=== PATIENT | male | born 1995 | race Caucasian/White ===

== ENCOUNTER 2020-07-22 11:22 | Outpatient (REF) | payer OTHER, SELFPAY | END 2020-07-22 11:23 | disposition home or self-care (01) | LOC: HO.LAB 11:22 | PROVIDERS: Visit Provider Internal Medicine | DX: Z20.828 Contact with and (suspected) exposure to other viral communicable diseases (principal) | CPT/HCPCS: 87635 ==

== ENCOUNTER 2020-07-27 12:48 | Emergency (ER) | payer SELFPAY ==
[2020-07-27 12:56] VITALS: BP 144/88; PULSE 76; RESP 18; TEMP 36.9; O2SAT 99; BMI 24.3
--- NOTE | 2020-07-27 13:28 | ED.NAVMDI ---
HPI - Nausea/Vomiting/Diarrhea General Chief complaint: Nausea/Vomiting/Diarrhea Stated complaint: vomiting Time Seen by Provider: 07/27/20 13:28 Source: patient Mode of arrival: ambulatory Limitations: no limitations History of Present Illness MD elicited complaint: nausea, vomiting and abdominal pain Pertinent past history: other (occurs when he drinks ETOH drank heavily last night) Onset (ago): day(s) (1) Description of vomiting: food contents, watery and coffee grounds Associated nausea: Yes Associated abdominal pain: Yes Location of pain: epigastric Pain consistency: constant Severity: severe Quality: cramping and aching Exacerbating factors: none Relieving factors: none Context: alcohol abuse and marijuana use Associated symptoms: loss of appetite and nausea/vomiting Related Data Previous Rx's Medication Instructions Recorded omeprazole 20 mg PO DAILY 14 Days #14 cap 07/27/20 ondansetron 4 mg PO Q8H PRN #20 tab 07/27/20 Allergies Allergy/AdvReac Type Severity Reaction Status Date / Time No Known Allergies Allergy Verified 07/27/20 12:55 [No Known Allergies*] Review of Systems Review of Systems: Constitutional : No Weight loss, No Fever, No Chills ENT/Mouth : No sore throat, No Rhinorrhea Eyes: No Swelling, No Redness Cardiovascular : No Chest Pain, No SOB, NoEdema Respiratory : No Cough, No Sputum, No Wheezing Gastrointestinal : Positive Nausea, Positive Vomiting, no Diarrhea, positive abdominal Pain, No Hematochezia, No Melena Genitourinary : No Dysuria, No Urinary Frequency, No Hematuria, No Urgency Musculoskeletal : No joint pain, No Myalgias, No Joint Swelling Skin : No Skin Lesions, No rash Neuro : No Weakness, No Numbness, No Dizziness, No Headache Psych : No Anxiety/Panic, No Depression Heme/Lymph: No Bruising, No Lymphadenopathy Endocrine : No Polyuria, No Polydipsia All other systems reviewed and are negative. Gastrointestinal: Gastrointestinal: Reports nausea PMFSH Past Medical History Medical History Healthy adult Social History Social History (Updated 07/27/20 @ 13:37 by Rosalinda Velazquez DO) Alcohol intake: current Alcohol intake frequency: does not drink Smoking Status: Never smoker Smoked in Last 30 Days: No Use of substances other than those prescribed or required for medical reasons: Yes Substance Use Type: Marijuana Substance Use Frequency: Daily Advance Directives: No Advance Directives Information Provided: Yes Physical Exam Vital Signs: Vital Signs: Vital Signs Temp Pulse Resp BP Pulse Ox 07/27/20 14:00 57 18 116/69 100 07/27/20 12:56 98.5 F 76 18 144/88 H 99 Body Mass Index 24.3 Appearance: Alert. Oriented X3. No acute distress. Eyes: Pupils equal, round and reactive to light. ENT: Pharynx mild dry MM Neck: Normal inspection. Neck supple. CVS: Normal heart rate and rhythm. Pulses normal. Respiratory: No respiratory distress. Breath sounds normal. Abdomen: Soft and moderate epigastric ttp Skin: Skin warm and dry. Normal skin color. Normal skin turgor. Extremities: No lower extremity edema. No calf ttp Neuro: Oriented X 3. No motor deficit. No sensory deficit. Course Course Course Narrative: able to tolerate PO feels much better, stable for DC MDM - Nausea/Vomiting/Diarrhea MDM Narrative Medical decision making narrative: 25 yo male with hx of ETOH and THC use - drank heavily last night due to family member dying patient admits to abdominal pain, extensive vomiting, then noted he saw some coffee ground emesis after multiple episodes of vomiting. will need labs, IVF, IV pepcid, reglan and benadryl, suspect ETOH gastritis Lab Data Result diagrams: 07/27/20 14:19 07/27/20 14:19 Labs: Lab Results 07/27/20 07/27/20 07/27/20 Range/Units 14:19 14:19 14:19 WBC 15.1 H (4.8-10.8) X10*3/uL RBC 5.04 (4.60-5.80) X10*6/uL Hgb 16.4 (14.0-18.0) g/dl Hct 46.0 (42-52) % MCV 91.3 (80-98) fL MCH 32.5 (27.0-33.0) pg MCHC 35.7 (31.0-36.0) g/dl RDW 11.4 (11.0-16.0) % Plt Count 289 (160-400) X10*3/uL MPV 10.2 (9.4-12.4) fL Immature Gran % (Auto) 0.7 H (0.0-0.4) % Neut % (Auto) 81.3 H (45-73) % Lymph % (Auto) 15.2 L (20-40) % Aiken % (Auto) 2.7 (2-11) % Eos % (Auto) 0.0 (0-4) % Baso % (Auto) 0.1 (0-2) % Lymph # (Auto) 2.3 (1.2-4.9) X10*3/uL Aiken # (Auto) 0.4 (0.1-1.2) X10*3/uL Eos # (Auto) 0.0 (0.0-0.4) X10*3/uL Baso # (Auto) 0.0 (0.0-0.2) X10*3/uL Abs Immat Gran (auto) 0.10 H (0.00-0.03) X10*3/uL Absolute Neuts (auto) 12.3 H (2.0-8.3) X10*3/uL Absolute Nucleated RBC 0.000 (0.0-0.012) X10*3/uL Nucleated RBC % (auto) 0.0 (0.0-0.2) /100WBC Hold Blue Top SEE NOTE Sodium 145 (135-145) mmol/L Potassium 3.8 (3.3-5.1) mmol/l Chloride 106 (96-108) mmol/L Carbon Dioxide 24 (22-29) mmol/L Anion Gap 19 (12-20) BUN 15 (9-16) mg/dL Creatinine 1.02 (0.5-1.4) mg/dL Estim Creat Clear Calc 101.7 Estimated GFR > 60 Random Glucose 112 (60-115) mg/dL Calcium 9.9 (8.4-10.2) mg/dL Magnesium (1.6-2.6) mg/dL Total Bilirubin (0.0-1.0) mg/dL Direct Bilirubin (0.0-0.5) mg/dL AST (5-37) U/L ALT (0-40) U/L Alkaline Phosphatase (39-117) U/L Total Protein (6.5-8.0) g/dL Albumin (3.5-5.0) g/dL Lipase (8-78) U/L Ethyl Alcohol mg/dL 07/27/20 07/27/20 Range/Units 14:19 14:19 WBC (4.8-10.8) X10*3/uL RBC (4.60-5.80) X10*6/uL Hgb (14.0-18.0) g/dl Hct (42-52) % MCV (80-98) fL MCH (27.0-33.0) pg MCHC (31.0-36.0) g/dl RDW (11.0-16.0) % Plt Count (160-400) X10*3/uL MPV (9.4-12.4) fL Immature Gran % (Auto) (0.0-0.4) % Neut % (Auto) (45-73) % Lymph % (Auto) (20-40) % Aiken % (Auto) (2-11) % Eos % (Auto) (0-4) % Baso % (Auto) (0-2) % Lymph # (Auto) (1.2-4.9) X10*3/uL Aiken # (Auto) (0.1-1.2) X10*3/uL Eos # (Auto) (0.0-0.4) X10*3/uL Baso # (Auto) (0.0-0.2) X10*3/uL Abs Immat Gran (auto) (0.00-0.03) X10*3/uL Absolute Neuts (auto) (2.0-8.3) X10*3/uL Absolute Nucleated RBC (0.0-0.012) X10*3/uL Nucleated RBC % (auto) (0.0-0.2) /100WBC Hold Blue Top Sodium (135-145) mmol/L Potassium (3.3-5.1) mmol/l Chloride (96-108) mmol/L Carbon Dioxide (22-29) mmol/L Anion Gap (12-20) BUN (9-16) mg/dL Creatinine (0.5-1.4) mg/dL Estim Creat Clear Calc Estimated GFR Random Glucose (60-115) mg/dL Calcium (8.4-10.2) mg/dL Magnesium 2.0 (1.6-2.6) mg/dL Total Bilirubin 0.8 (0.0-1.0) mg/dL Direct Bilirubin 0.4 (0.0-0.5) mg/dL AST 22 (5-37) U/L ALT 17 (0-40) U/L Alkaline Phosphatase 79 (39-117) U/L Total Protein 8.7 H (6.5-8.0) g/dL Albumin 5.3 H (3.5-5.0) g/dL Lipase 33 (8-78) U/L Ethyl Alcohol < 10 mg/dL Discharge Plan Discharge Clinical Impression: Gastritis, Vomiting Patient Disposition: Home, Self-Care Instructions: Gastritis (ED), Acute Nausea and Vomiting (ED) Prescriptions: New ondansetron 4 mg tablet,disintegrating 4 mg PO Q8H PRN (Reason: nausea and vomiting) Qty: 20 RF: 0 omeprazole 20 mg capsule,delayed release(DR/EC) 20 mg PO DAILY 14 Days Qty: 14 RF: 0 Referrals: Physician,None [Primary Care Provider] - 2 days (if not better) Stand Alone Forms: Work/School Release
[2020-07-27 14:00] VITALS: BP 116/69; PULSE 57; RESP 18; O2SAT 100
[2020-07-27 14:27] LABS: MANUAL DIFF FLAG NO
[2020-07-27] MEDS: 0.9 % Sodium Chloride 1,000 ML 999 ML IVCONT (14:32)
[2020-07-27] MEDS: diphenhydrAMINE HCL 50 MG/ML VIAL 25 MG IVPUSH (14:33)
[2020-07-27 14:34] LABS: Basophils Percent Auto 0.1 % (0-2); Hemoglobin 16.4 g/dl (14.0-18.0); Imm Gran Pct Auto 0.7 % (0.0-0.4); Lymphocytes Absolute Auto 2.3 X10*3/uL (1.2-4.9); Lymphocytes Percent Auto 15.2 % (20-40); Mean Corpuscular HGB Conc 35.7 g/dl (31.0-36.0); Mean Corpuscular Hemoglobin 32.5 pg (27.0-33.0); Mean Corpuscular Volume 91.3 fL (80-98); Mean Platelet Volume 10.2 fL (9.4-12.4); Monocytes Absolute Auto 0.4 X10*3/uL (0.1-1.2); Monocytes Percent Auto 2.7 % (2-11); Neutrophils Absolute Auto 12.3 X10*3/uL (2.0-8.3); Neutrophils Percent Auto 81.3 % (45-73); Platelet Count 289 X10*3/uL (160-400); Red Blood Count 5.04 X10*6/uL (4.60-5.80); Red Cell Distribution Width 11.4 % (11.0-16.0); White Blood Count 15.1 X10*3/uL (4.8-10.8)
[2020-07-27] MEDS: Metoclopramide HCl 10 MG/2 ML VIAL IVPUSH (14:34)
[2020-07-27] MEDS: Famotidine/PF 20 MG/2 ML VIAL IVPUSH (14:34)
[2020-07-27 14:59] LABS: Ethanol < 10 mg/dL
[2020-07-27 15:02] LABS: Anion Gap 19 (12-20); Blood Urea Nitrogen 15 mg/dL (9-16); Calcium 9.9 mg/dL (8.4-10.2); Carbon Dioxide 24 mmol/L (22-29); Chloride 106 mmol/L (96-108); Creatinine Clr Calc Pharmacy 101.7; Estimated Glomerular Filt Rate > 60; Glucose Random 112 mg/dL (60-115); Potassium 3.8 mmol/l (3.3-5.1); Sodium 145 mmol/L (135-145)
[2020-07-27 15:08] LABS: Alanine Aminotransferase 17 U/L (0-40); Albumin Level 5.3 g/dL (3.5-5.0); Alkaline Phosphatase 79 U/L (39-117); Aspartate Amino Transferase 22 U/L (5-37); Bilirubin Direct 0.4 mg/dL (0.0-0.5); Bilirubin Total 0.8 mg/dL (0.0-1.0); Lipase 33 U/L (8-78); Total Protein 8.7 g/dL (6.5-8.0)
--- NOTE | 2020-07-27 15:37 | PC.NURSE ---
PT REPORTS NOT FEELING ANY BETTER, STILL VOMITING AND HAVING ABD PAIN
[2020-07-27] MEDS: LORazepam 2 MG/ML VIAL 0.5 MG IVPUSH (15:58)
[2020-07-27] MEDS: ondansetron HCL 4 MG/2 ML VIAL IVPUSH (15:59)
--- NOTE | 2020-07-27 16:30 | PC.NURSE ---
pt sleeping but easily arousable , no vomiting, tolerating elton ted po at this time.
== END 2020-07-27 16:53 | disposition home or self-care (01) ==
PROVIDERS: Emergency Provider Emergency Medicine
DX: K29.70 Gastritis, unspecified, without bleeding (principal); F10.10 Alcohol abuse, uncomplicated; Y90.0 Blood alcohol level of less than 20 mg/100 ml; F12.90 Cannabis use, unspecified, uncomplicated
CPT/HCPCS: 36415; 80048; 80076; 80320; 83690; 83735; 85025; 96361; 96374; 96375; 99284; J1200; J2060; J2405; J2765

== ENCOUNTER 2020-12-29 06:35 | Emergency (ER) | payer MEDICAID, SELFPAY ==
[2020-12-29 06:38] VITALS: BP 137/79; PULSE 75; RESP 18; TEMP 36.7; O2SAT 98; BMI 50.1
--- NOTE | 2020-12-29 07:19 | ED.ABDPAIN ---
HPI - Abdominal Pain General Chief Complaint: Nausea/Vomiting/Diarrhea Stated Complaint: VOMITING Time Seen by Provider: 12/29/20 07:16 Source: patient Mode of arrival: ambulatory Limitations: no limitations History of Present Illness HPI narrative: 25-year-old male who walked into the emergency department for evaluation of abdominal pain and nausea and vomiting. Pain started few hours ago after drinking heavy liquor alcohol, patient describes the pain as severe and constant pain 10/10 in the epigastric area goes down to the lower abdomen, pain is associated with nausea and vomiting unable to keep p.o. intake, no diarrhea, patient has similar pain in the past after drinking alcohol. Nothing makes the pain better or worse. Past surgical history significant for appendectomy. Related Data Previous Rx's Medication Instructions Recorded omeprazole 20 mg PO DAILY 14 Days #14 cap 07/27/20 ondansetron 4 mg PO Q8H PRN #20 tab 07/27/20 omeprazole magnesium [Prilosec OTC] 20 mg PO BID #30 tab 12/29/20 ondansetron HCl [Zofran] 4 mg PO Q8H PRN #5 tab 12/29/20 Allergies Allergy/AdvReac Type Severity Reaction Status Date / Time No Known Allergies Allergy Verified 07/27/20 12:55 [No Known Allergies*] Review of Systems Review of Systems All other systems are reviewed and are negative Constitutional: Reports as per HPI and Reports no additional constitutional complaints Eyes: Reports as per HPI and Reports no additional eye complaints Reports system reviewed and no additional complaints, except as documented Cardiovascular: Reports as per HPI and Reports no additional cardiovascular complaints Respiratory: Reports as per HPI and Reports no additional respiratory complaints Gastrointestinal: Reports as per HPI and Reports no additional gastrointestinal complaints Genitourinary: Reports no additional female genitourinary complaints Musculoskeletal: Reports no additional musculoskeletal complaints Skin/Breast: Reports system reviewed and no additional complaints, except as docu Psychiatric: Reports no additional psychiatric complaints Endocrine: Reports no additional endocrine complaints Hematologic/Lymphatic: Reports no additional hematologic/lymphatic complaints Allergic/Immunologic: Reports no additional allergic/immunologic complaints Reports system reviewed and no additional complaints, except as documented and Reports Abnormal speech present Physical Exam Vital Signs: Vital Signs: Last Vital Signs Temp 99.3 F 12/29/20 10:29 Pulse 73 12/29/20 10:29 Resp 17 12/29/20 10:29 BP 115/65 12/29/20 10:29 Pulse Ox 98 12/29/20 10:29 Body Mass Index 50.1 Vital signs have been reviewed as appeared to be correct. Blood pressure in the high range (probably due to discomfort from vomiting and abdominal pain). Heart rate normal. Respiration rate normal. Temperature normal. Oxygen saturation normal. Appearance: Alert. Oriented X3. No acute distress. Head: Normal external exam. Normocephalic. Atraumatic. No Jensen signs noted. No raccoon eyes noted Eyes: PERRLA. EOMI. Conjunctiva and sclera normal. Eyelids normal. ENT: TM's Normal. Pharynx normal. Uvula midline. Moist mucous membranes. No trismus noted. No drooling noted. No muffled voice noted. Neck: Normal inspection. Neck supple. FROM. No adenopathy. Thyroid Normal. No meningeal signs. No neck mass noted. CVS: Normal heart rate and rhythm. Heart sound normal. No murmurs noted. Pulses normal throughout. Respiratory: No respiratory distress. Painless inspiration. Breath sounds normal. No wheezes/rales/rhonchi noted. Chest nontender. No accessory muscle usage noted or decreased air movement noted. Abdomen: Soft, mild tenderness epigastric and periumbilical area, no guarding, no rebound tenderness. Bowel sounds normal in all 4 quadrants. No distention noted. No organomegaly noted. No visible injury noted. Back: No CVA tenderness. Full range of motion noted. Skin: Skin warm and dry. Normal skin color. Normal skin turgor. No rashes/lesions/lacerations noted. Extremities: No lower extremity edema. Extremities exhibit normal range of motion. Extremities nontender. Neuro: Oriented X 3. No motor deficit. No sensory deficit. Reflexes normal. Course Course Course Narrative: 25-year-old male came in after having nausea and vomiting after heavy drinking yesterday, patient had a history of alcoholic gastritis in the past, patient improved with IV fluid/Pepcid/Maalox. Patient is able to tolerate p.o. intake. Patient had similar presentation in the fast with also high leukocytosis, patient is status post appendectomy. Patient able to tolerate p.o. intake and improved clinically will discharge the patient with instruction to return if worsening of the symptoms of persistent of nausea or vomiting. Patient was instructed to stay away from alcohol. MDM - Abdominal Pain Lab Data Attestation: I reviewed the patient's lab results. Result diagrams: 12/29/20 07:27 12/29/20 08:42 Labs: Lab Results 12/29/20 12/29/20 12/29/20 Range/Units 07:27 08:42 10:33 WBC 19.7 H (4.8-10.8) X10*3/uL RBC 5.00 (4.60-5.80) X10*6/uL Hgb 16.4 (14.0-18.0) g/dl Hct 46.2 (42-52) % MCV 92.4 (80-98) fL MCH 32.8 (27.0-33.0) pg MCHC 35.5 (31.0-36.0) g/dl RDW 11.8 (11.0-16.0) % Plt Count 249 (160-400) X10*3/uL MPV Not Reportable Immature Gran % (Auto) 0.6 H (0.0-0.4) % Neut % (Auto) 90.1 H (45-73) % Lymph % (Auto) 6.8 L (20-40) % Mclean % (Auto) 2.3 (2-11) % Eos % (Auto) 0.0 (0-4) % Baso % (Auto) 0.2 (0-2) % Lymph # (Auto) 1.4 (1.2-4.9) X10*3/uL Mclean # (Auto) 0.5 (0.1-1.2) X10*3/uL Eos # (Auto) 0.0 (0.0-0.4) X10*3/uL Baso # (Auto) 0.0 (0.0-0.2) X10*3/uL Abs Immat Gran (auto) 0.11 H (0.00-0.03) X10*3/uL Absolute Neuts (auto) 17.8 H (2.0-8.3) X10*3/uL Absolute Nucleated RBC 0.000 (0.0-0.012) X10*3/uL Nucleated RBC % (auto) 0.0 (0.0-0.2) /100WBC Smear Tech's Comments VERIFIED Sodium 145 (135-145) mmol/L Potassium 4.3 (3.3-5.1) mmol/L Chloride 109 H (96-108) mmol/L Carbon Dioxide 21 L (22-29) mmol/L Anion Gap 19 (12-20) BUN 14 (9-16) mg/dL Creatinine 1.05 (0.5-1.4) mg/dL Estim Creat Clear Calc 145.9 Estimated GFR > 60 Random Glucose 96 (60-115) mg/dL Calcium 9.1 D (8.4-10.2) mg/dL Total Bilirubin 0.9 (0.0-1.0) mg/dL Direct Bilirubin 0.3 (0.0-0.5) mg/dL AST 24 (5-37) U/L ALT 17 (0-40) U/L Alkaline Phosphatase 73 (39-117) U/L Total Protein 7.5 (6.5-8.0) g/dL Albumin 4.6 (3.5-5.0) g/dL Lipase 25 (8-78) U/L Urine Color YELLOW Urine Appearance CLEAR Urine pH 7.0 (5.0-8.0) Ur Specific [place] 1.025 (1.005-1.025) Urine Protein NEG (NEG-TRACE) MG/DL Urine Glucose (UA) NEG (NEG) MG/DL Urine Ketones 40 (NEG) MG/DL Urine Blood NEG (NEG) Urine Nitrite NEG (NEG) Ur Leukocyte Esterase NEG (NEG) Discharge Plan Discharge Clinical Impression: Acute alcoholic gastritis Qualifiers: Gastritis bleeding: without bleeding Qualified Code(s): K29.20 - Alcoholic gastritis without bleeding Patient Disposition: Home, Self-Care Instructions: Gastritis (ED) Prescriptions: New omeprazole magnesium [Prilosec OTC] 20 mg tablet,delayed release (DR/EC) 20 mg PO BID Qty: 30 RF: 0 ondansetron HCl [Zofran] 4 mg tablet 4 mg PO Q8H PRN (Reason: nausea and vomiting) Qty: 5 RF: 0 No Action ondansetron 4 mg tablet,disintegrating 4 mg PO Q8H PRN (Reason: nausea and vomiting) Qty: 20 RF: 0 omeprazole 20 mg capsule,delayed release(DR/EC) 20 mg PO DAILY 14 Days Qty: 14 RF: 0 Referrals: Physician,None [Primary Care Provider] - 2 days PMFSH Past Medical History Medical History (Updated 12/29/20 @ 12:15 by Gabe Salgado MD) Healthy adult Surgical History (Updated 12/29/20 @ 07:22 by Gabe Salgado MD) History of appendectomy Social History Social History Alcohol intake: current Alcohol intake frequency: does not drink Smoking Status: Never smoker Substance Use Type: Marijuana Advance Directives: Yes Advance Directives Information Provided: No Advance Directives on File: No
[2020-12-29 07:35] LABS: Basophils Percent Auto 0.2 % (0-2); Hemoglobin 16.4 g/dl (14.0-18.0); Lymphocytes Absolute Auto 1.4 X10*3/uL (1.2-4.9); MANUAL DIFF FLAG SCAN; Neutrophils Percent Auto 90.1 % (45-73); PLT CLUMP 1; SCAN SMEAR FLAG 1
[2020-12-29] MEDS: Famotidine/PF 20 MG/2 ML VIAL IVPUSH (07:36)
[2020-12-29 07:37] LABS: Hematocrit 46.2 % (42-52); Imm Gran Abs Auto 0.11 X10*3/uL (0.00-0.03); Imm Gran Pct Auto 0.6 % (0.0-0.4); Lymphocytes Percent Auto 6.8 % (20-40); Mean Corpuscular HGB Conc 35.5 g/dl (31.0-36.0); Mean Corpuscular Hemoglobin 32.8 pg (27.0-33.0); Mean Corpuscular Volume 92.4 fL (80-98); Monocytes Absolute Auto 0.5 X10*3/uL (0.1-1.2); Monocytes Percent Auto 2.3 % (2-11); Neutrophils Absolute Auto 17.8 X10*3/uL (2.0-8.3); Red Cell Distribution Width 11.8 % (11.0-16.0); White Blood Count 19.7 X10*3/uL (4.8-10.8)
[2020-12-29] MEDS: Magnesium Hydrox/Alum Hydrox 30 ML ORAL.SUSP PO (07:37)
[2020-12-29] MEDS: 0.9 % Sodium Chloride 1,000 ML 999 ML IVCONT (07:37)
[2020-12-29] MEDS: ondansetron HCL 4 MG/2 ML VIAL IVPUSH ×2 (07:37→08:54)
[2020-12-29 08:19] LABS: Platelet Count 249 X10*3/uL (160-400)
[2020-12-29 08:20] LABS: SLIDE REVIEW VERIFIED
[2020-12-29 09:31] LABS: Alanine Aminotransferase 17 U/L (0-40); Albumin Level 4.6 g/dL (3.5-5.0); Alkaline Phosphatase 73 U/L (39-117); Anion Gap 19 (12-20); Aspartate Amino Transferase 24 U/L (5-37); Bilirubin Direct 0.3 mg/dL (0.0-0.5); Bilirubin Total 0.9 mg/dL (0.0-1.0); Blood Urea Nitrogen 14 mg/dL (9-16); Calcium 9.1 mg/dL (8.4-10.2); Carbon Dioxide 21 mmol/L (22-29); Chloride 109 mmol/L (96-108); Creatinine Clr Calc Pharmacy 145.9; Estimated Glomerular Filt Rate > 60; Glucose Random 96 mg/dL (60-115); Lipase 25 U/L (8-78); Potassium 4.3 mmol/L (3.3-5.1); Sodium 145 mmol/L (135-145); Total Protein 7.5 g/dL (6.5-8.0)
[2020-12-29 10:29] VITALS: BP 115/65; PULSE 73; RESP 17; TEMP 37.4; O2SAT 98
[2020-12-29 10:46] LABS: Glucose Urine UA NEG (NEG); Leukocyte Esterase Urine NEG (NEG); Nitrite Urine NEG (NEG); Specific Gravity - Urine 1.025 (1.005-1.025); Urine Blood NEG (NEG); Urine Ketones 40 MG/DL (NEG); Urine Protein NEG (NEG-TRACE)
[2020-12-29 10:47] LABS: Appearance Urine CLEAR; Color Urine YELLOW
== END 2020-12-29 12:47 | disposition home or self-care (01) ==
PROVIDERS: Emergency Provider Emergency Medicine
DX: K29.20 Alcoholic gastritis without bleeding (principal); R11.2 Nausea with vomiting, unspecified; F12.90 Cannabis use, unspecified, uncomplicated; Z79.899 Other long term (current) drug therapy
CPT/HCPCS: 36415; 80048; 80076; 81003; 83690; 85025; 96365; 96375; 96376; 99284; J2405

== ENCOUNTER 2021-02-20 03:35 | Inpatient (IN) | payer MEDICAID, SELFPAY ==
[2021-02-20 03:38] VITALS: BP 135/78; PULSE 74; RESP 18; TEMP 37.1; O2SAT 98; BMI 22.7
--- NOTE | 2021-02-20 04:26 | ED_ITS ---
HPI - Nausea/Vomiting/Diarrhea General Chief complaint: Nausea/Vomiting/Diarrhea Stated complaint: vomiting blood Time Seen by Provider: 02/20/21 04:14 Source: patient Mode of arrival: ambulatory Limitations: no limitations History of Present Illness HPI Narrative: Patient comes emergency room complaining of vomiting blood. Patient states it started earlier last morning, over the last 24 hour states that he has vomited more than 20 times. Patient states that he drank alcohol 2 days ago. Patient has been in the emergency room previously, diagnosed with alcoholic gastritis. Patient denies abdominal pain, no diarrhea. Related Data Previous Rx's Medication Instructions Recorded omeprazole 20 mg PO DAILY 14 Days #14 cap 07/27/20 ondansetron 4 mg PO Q8H PRN #20 tab 07/27/20 omeprazole magnesium [Prilosec OTC] 20 mg PO BID #30 tab 12/29/20 ondansetron HCl [Zofran] 4 mg PO Q8H PRN #5 tab 12/29/20 Allergies Allergy/AdvReac Type Severity Reaction Status Date / Time No Known Allergies Allergy Verified 07/27/20 12:55 [No Known Allergies*] Review of Systems Review of Systems: Constitutional : No Weight loss, No Fever, No Chills, No Night Sweats, No Fatigue, No Malaise ENT/Mouth : No Hearing loss, No Ear Pain, No Nasal Congestion, No Sinus Pain, No Hoarseness, No sore throat, No Rhinorrhea, No Swallowing Difficulty Eyes: No Eye Pain, No Swelling, No Redness, No Foreign Body, No Discharge, No Vision Changes Cardiovascular : No Chest Pain, No SOB, No Dyspnea on Exertion, No Orthopnea, No Edema, No Palpitations Respiratory : No Cough, No Sputum, No Wheezing, No Smoke Exposure, No Dyspnea Gastrointestinal : Complaining of nausea vomiting, No Diarrhea, No Constipation, No abdominal Pain, No Hematochezia, No Melena Genitourinary : no irregular bleeding, No Dysuria, No Urinary Frequency, No Hematuria, No Urinary Incontinence, No Urgency, No Flank Pain, No Urinary Flow Changes, No Hesitancy Musculoskeletal : No joint pain, No Myalgias, No Joint Swelling Skin : No Skin Lesions, No rash Neuro : No Weakness, No Numbness, No Paresthesias, No Loss of Consciousness, No Dizziness, No Headache Psych : No Anxiety/Panic, No Depression, No SI/HI/AH/VH, No Social Issues, Heme/Lymph: No Bruising, No Bleeding,No Lymphadenopathy Endocrine : No Polyuria, No Polydipsia, No Temperature Intolerance [facility] Past Medical History Medical History (Updated 02/20/21 @ 05:22 by Fatemeh Quigley MD) Gastritis Healthy adult Surgical History History of appendectomy Social History Social History Alcohol intake: current Alcohol intake frequency: does not drink Smoking Status: Never smoker Substance Use Type: Marijuana Advance Directives: No Advance Directives Information Provided: No Physical Exam Vital Signs: Vital Signs: Last Vital Signs Temp 98.8 F 02/20/21 03:38 Pulse 74 02/20/21 03:38 Resp 18 02/20/21 03:38 BP 135/78 02/20/21 03:38 Pulse Ox 98 02/20/21 03:38 Body Mass Index 22.7 Appearance: Alert. Oriented X3. Actively vomiting, does look like blood Eyes: Pupils equal, round and reactive to light. ENT: Pharynx normal. Neck: Normal inspection. Neck supple. No lymph nodes noted. No crepitus CVS: Normal heart rate and rhythm. Pulses normal. Normal S1 and S2 Respiratory: No respiratory distress. Breath sounds normal. No Wheezing. No rales Abdomen: Soft and nontender. No rigidity. No distention. good BS x4 Skin: Skin warm and dry. Normal skin color. Normal skin turgor. Extremities: No lower extremity edema. No lower extremity edema. No Lacerations. No Rash Neuro: Oriented X 3. No motor deficit. No sensory deficit. Moving all extermities. No slurred speech. Course Course Course Narrative: Patient has history of a Edwina-Almeida tear in 2019. At this time, for Boerhave syndrome is not suspected Patient's hemoglobin/hematocrit stable. I discussed the patient with our hospitalist, patient being admitted. Patient's white blood cell count is chronically elevated. Sepsis is not suspected. MDM - Nausea/Vomiting/Diarrhea Lab Data Result diagrams: 02/20/21 04:35 02/20/21 04:35 Labs: Lab Results 02/20/21 02/20/21 02/20/21 Range/Units 04:35 04:35 04:35 WBC 17.5 H (4.8-10.8) X10*3/uL RBC 4.86 (4.60-5.80) X10*6/uL Hgb 15.9 (14.0-18.0) g/dl Hct 44.6 (42-52) % MCV 91.8 (80-98) fL MCH 32.7 (27.0-33.0) pg MCHC 35.7 (31.0-36.0) g/dl RDW 11.8 (11.0-16.0) % Plt Count 250 (160-400) X10*3/uL MPV 10.2 (9.4-12.4) fL Immature Gran % (Auto) 0.4 (0.0-0.4) % Neut % (Auto) 79.6 H (45-73) % Lymph % (Auto) 13.6 L (20-40) % Steele % (Auto) 6.3 (2-11) % Eos % (Auto) 0.0 (0-4) % Baso % (Auto) 0.1 (0-2) % Lymph # (Auto) 2.4 (1.2-4.9) X10*3/uL Steele # (Auto) 1.1 (0.1-1.2) X10*3/uL Eos # (Auto) 0.0 (0.0-0.4) X10*3/uL Baso # (Auto) 0.0 (0.0-0.2) X10*3/uL Abs Immat Gran (auto) 0.07 H (0.00-0.03) X10*3/uL Absolute Neuts (auto) 14.0 H (2.0-8.3) X10*3/uL Absolute Nucleated RBC 0.000 (0.0-0.012) X10*3/uL Nucleated RBC % (auto) 0.0 (0.0-0.2) /100WBC Sodium 143 (135-145) mmol/L Potassium 4.2 (3.3-5.1) mmol/L Chloride 106 (96-108) mmol/L Carbon Dioxide 20 L (22-29) mmol/L Anion Gap 21 H (12-20) BUN 31 H D (9-16) mg/dL Creatinine 1.26 (0.5-1.4) mg/dL Estim Creat Clear Calc 81.1 Estimated GFR > 60 Random Glucose 130 H D (60-115) mg/dL Calcium 10.2 D (8.4-10.2) mg/dL Total Bilirubin 1.3 H (0.0-1.0) mg/dL Direct Bilirubin 0.5 (0.0-0.5) mg/dL AST 22 (5-37) U/L ALT 17 (0-40) U/L Alkaline Phosphatase 76 (39-117) U/L Total Protein 8.5 H (6.5-8.0) g/dL Albumin 5.2 H (3.5-5.0) g/dL Lipase 22 (8-78) U/L Gastric Occult Blood (NEG) Ethyl Alcohol < 10 mg/dL COVID-19 (DEIRDRE) (Negative) COVID-19 Clin Com 02/20/21 02/20/21 Range/Units 04:35 04:35 WBC (4.8-10.8) X10*3/uL RBC (4.60-5.80) X10*6/uL Hgb (14.0-18.0) g/dl Hct (42-52) % MCV (80-98) fL MCH (27.0-33.0) pg MCHC (31.0-36.0) g/dl RDW (11.0-16.0) % Plt Count (160-400) X10*3/uL MPV (9.4-12.4) fL Immature Gran % (Auto) (0.0-0.4) % Neut % (Auto) (45-73) % Lymph % (Auto) (20-40) % Steele % (Auto) (2-11) % Eos % (Auto) (0-4) % Baso % (Auto) (0-2) % Lymph # (Auto) (1.2-4.9) X10*3/uL Steele # (Auto) (0.1-1.2) X10*3/uL Eos # (Auto) (0.0-0.4) X10*3/uL Baso # (Auto) (0.0-0.2) X10*3/uL Abs Immat Gran (auto) (0.00-0.03) X10*3/uL Absolute Neuts (auto) (2.0-8.3) X10*3/uL Absolute Nucleated RBC (0.0-0.012) X10*3/uL Nucleated RBC % (auto) (0.0-0.2) /100WBC Sodium (135-145) mmol/L Potassium (3.3-5.1) mmol/L Chloride (96-108) mmol/L Carbon Dioxide (22-29) mmol/L Anion Gap (12-20) BUN (9-16) mg/dL Creatinine (0.5-1.4) mg/dL Estim Creat Clear Calc Estimated GFR Random Glucose (60-115) mg/dL Calcium (8.4-10.2) mg/dL Total Bilirubin (0.0-1.0) mg/dL Direct Bilirubin (0.0-0.5) mg/dL AST (5-37) U/L ALT (0-40) U/L Alkaline Phosphatase (39-117) U/L Total Protein (6.5-8.0) g/dL Albumin (3.5-5.0) g/dL Lipase (8-78) U/L Gastric Occult Blood POS (NEG) Ethyl Alcohol mg/dL COVID-19 (DEIRDRE) Negative (Negative) COVID-19 Clin Com See Note Discharge Plan Discharge Clinical Impression: Hematemesis Patient Disposition: Admitted As Inpatient Prescriptions: No Action ondansetron 4 mg tablet,disintegrating 4 mg PO Q8H PRN (Reason: nausea and vomiting) Qty: 20 RF: 0 omeprazole 20 mg capsule,delayed release(DR/EC) 20 mg PO DAILY 14 Days Qty: 14 RF: 0 omeprazole magnesium [Prilosec OTC] 20 mg tablet,delayed release (DR/EC) 20 mg PO BID Qty: 30 RF: 0 ondansetron HCl [Zofran] 4 mg tablet 4 mg PO Q8H PRN (Reason: nausea and vomiting) Qty: 5 RF: 0
[2021-02-20 04:39] LABS: Basophils Percent Auto 0.1 % (0-2); Hematocrit 44.6 % (42-52); Hemoglobin 15.9 g/dl (14.0-18.0); Imm Gran Abs Auto 0.07 X10*3/uL (0.00-0.03); Imm Gran Pct Auto 0.4 % (0.0-0.4); Lymphocytes Absolute Auto 2.4 X10*3/uL (1.2-4.9); Lymphocytes Percent Auto 13.6 % (20-40); MANUAL DIFF FLAG NO; Mean Corpuscular HGB Conc 35.7 g/dl (31.0-36.0); Mean Corpuscular Hemoglobin 32.7 pg (27.0-33.0); Mean Corpuscular Volume 91.8 fL (80-98); Mean Platelet Volume 10.2 fL (9.4-12.4); Monocytes Absolute Auto 1.1 X10*3/uL (0.1-1.2); Monocytes Percent Auto 6.3 % (2-11); Neutrophils Percent Auto 79.6 % (45-73); Platelet Count 250 X10*3/uL (160-400); Red Blood Count 4.86 X10*6/uL (4.60-5.80); Red Cell Distribution Width 11.8 % (11.0-16.0); White Blood Count 17.5 X10*3/uL (4.8-10.8)
[2021-02-20 04:48] LABS: GASOB Int Neg Ctl Valid YES; GASOB Int Pos Ctl Valid YES; Occult Blood Gastric POS (NEG)
[2021-02-20] MEDS: 0.9 % Sodium Chloride 1,000 ML 999 ML IVCONT (04:48)
[2021-02-20] MEDS: Famotidine/PF 20 MG/2 ML VIAL IVPUSH (04:48)
[2021-02-20] MEDS: ondansetron HCL 4 MG/2 ML VIAL IVPUSH (04:48)
[2021-02-20 05:04] LABS: Ethanol < 10 mg/dL
[2021-02-20 05:07] LABS: COVID-19 Test Negative (Negative); IDNOW Serial# 9DD0AD1C
[2021-02-20 05:10] LABS: Alanine Aminotransferase 17 U/L (0-40); Albumin Level 5.2 g/dL (3.5-5.0); Alkaline Phosphatase 76 U/L (39-117); Anion Gap 21 (12-20); Aspartate Amino Transferase 22 U/L (5-37); Bilirubin Direct 0.5 mg/dL (0.0-0.5); Bilirubin Total 1.3 mg/dL (0.0-1.0); Blood Urea Nitrogen 31 mg/dL (9-16); Calcium 10.2 mg/dL (8.4-10.2); Carbon Dioxide 20 mmol/L (22-29); Chloride 106 mmol/L (96-108); Creatinine Clr Calc Pharmacy 81.1; Estimated Glomerular Filt Rate > 60; Glucose Random 130 mg/dL (60-115); Lipase 22 U/L (8-78); Potassium 4.2 mmol/L (3.3-5.1); Sodium 143 mmol/L (135-145); Total Protein 8.5 g/dL (6.5-8.0)
--- NOTE | 2021-02-20 05:24 | PM.IMHP ---
History of Present Illness Date of Service: 02/20/21 Chief Complaint: Hematemesis 26-year-old male with a past medical history of alcohol abuse, alcoholic gastritis, history of arrest air presented to the hospital with a chief complaint of nausea/vomiting. February reports that he had multiple episodes of nausea and vomiting. And today he had an episode of blood in the vomitus. Complains of abdominal discomfort secondary to vomiting. Denies any chest pain palpitations. Denies any numbness tingling. Mentioned that he has been drinking alcohol, he binge drinks alcohol, last drink was 2 days ago. Denies any seizure-like activity. Denies any fever chills cough. Review of all other systems is negative except mentioned above ER course: Per ER team patient's exam was essentially benign, noted to have mild leukocytosis, hemoglobin stable, chemistry within the normal limits, liver panel within normal limits, given famotidine. Admitted to the hospital for further management. [facility] Medical History (Updated 02/20/21 @ 05:22 by Fatemeh Quigley MD) Gastritis Healthy adult Surgical History History of appendectomy Social History Alcohol intake: current Alcohol intake frequency: does not drink Smoking Status: Never smoker Substance Use Type: Marijuana Advance Directives: No Advance Directives Information Provided: No Meds Allergies Allergy/AdvReac Type Severity Reaction Status Date / Time No Known Allergies Allergy Verified 07/27/20 12:55 [No Known Allergies*] Active Medications: Current Medications Generic Name Dose Route Start Last Admin Trade Name Pia PRN Reason Stop Dose Admin Acetaminophen 650 mg 02/20/21 05:20 Acetaminophen 325 Mg Tablet PO Q6H PRN Pain, Mild (Pain Scale 1-3) Folic Acid 1 mg 02/20/21 09:00 Folic Acid 1 Mg Tablet PO 02/23/21 08:59 DAILY MARITZA Dextrose/Sodium Chloride 1,000 mls @ 100 mls/hr 02/20/21 05:30 D51/2ns IVCONT .Q10H MARITZA Lorazepam 1 mg 02/20/21 05:22 Lorazepam 1 Mg Tablet PO 02/24/21 05:21 Q4H PRN Breakthrough alcohol withdrawa Multivitamins 1 tab 02/20/21 09:00 B-Complex With Vitamin C Tablet PO DAILY PENDING SALE TO [facility] Ondansetron HCl 4 mg 02/20/21 05:20 Ondansetron Hcl 4 Mg/2 Ml Vial IVPUSH Q8H PRN Nausea and Vomiting Pantoprazole Sodium 40 mg 02/20/21 06:30 Pantoprazole Sodium 40 Mg/10 Ml Vial IVPUSH BID@0630,1630 PENDING SALE TO [facility] Sodium Chloride 3 ml 02/20/21 08:00 0.9 % Sodium Chloride Flush 3 Ml Syringe IVFLUSH QSHIFT PENDING SALE TO [facility] Thiamine HCl 100 mg 02/20/21 09:00 Thiamine Hcl 100 Mg Tablet PO 02/23/21 08:59 DAILY PENDING SALE TO [facility] Home Medications Medication Instructions Recorded Confirmed Last Taken Type No Known Home Meds 02/20/21 02/20/21 Unknown History Physical Exam Vital Signs and Narrative: Vital Signs: Last Vital Signs Temp 98.8 F 02/20/21 03:38 Pulse 74 02/20/21 03:38 Resp 18 02/20/21 03:38 BP 135/78 02/20/21 03:38 Pulse Ox 98 02/20/21 03:38 Body Mass Index 22.7 Gen: Appears be in no acute distress HEENT: NCAT, Moist mucosa. Pulmonary: Vesicular breath sounds, fair air entry CVS: Normal S1-S2 Abdomen: BS+, Soft, Nontender Extremities: Warm well perfused Neuro: Alert and awake. Results Labs CBC and Chem 7: 02/20/21 06:06 02/20/21 04:35 Labs: Laboratory Results - last 24 hr 02/20/21 02/20/21 02/20/21 04:35 04:35 04:35 MCV 91.8 MCH 32.7 MCHC 35.7 RDW 11.8 Plt Count 250 MPV 10.2 Immature Gran % (Auto) 0.4 Neut % (Auto) 79.6 H Lymph % (Auto) 13.6 L [place] % (Auto) 6.3 Eos % (Auto) 0.0 Baso % (Auto) 0.1 Lymph # (Auto) 2.4 [place] # (Auto) 1.1 Eos # (Auto) 0.0 Baso # (Auto) 0.0 Abs Immat Gran (auto) 0.07 H Absolute Neuts (auto) 14.0 H Absolute Nucleated RBC 0.000 Nucleated RBC % (auto) 0.0 Anion Gap 21 H Estim Creat Clear Calc 81.1 Estimated GFR > 60 Random Glucose 130 H D Calcium 10.2 D Total Bilirubin 1.3 H Direct Bilirubin 0.5 AST 22 ALT 17 Alkaline Phosphatase 76 Total Protein 8.5 H Albumin 5.2 H Lipase 22 Gastric Occult Blood Ethyl Alcohol < 10 COVID-19 (DEIRDRE) COVID-19 Clin Com 02/20/21 02/20/21 04:35 04:35 MCV MCH MCHC RDW Plt Count MPV Immature Gran % (Auto) Neut % (Auto) Lymph % (Auto) [place] % (Auto) Eos % (Auto) Baso % (Auto) Lymph # (Auto) [place] # (Auto) Eos # (Auto) Baso # (Auto) Abs Immat Gran (auto) Absolute Neuts (auto) Absolute Nucleated RBC Nucleated RBC % (auto) Anion Gap Estim Creat Clear Calc Estimated GFR Random Glucose Calcium Total Bilirubin Direct Bilirubin AST ALT Alkaline Phosphatase Total Protein Albumin Lipase Gastric Occult Blood POS Ethyl Alcohol COVID-19 (DEIRDRE) Negative COVID-19 Clin Com See Note Assessment and Plan (1) Hematemesis: Qualifiers: Nausea presence: with nausea Qualified Code(s): K92.0 - Hematemesis Status: Acute 26-year-old male with a past medical history of alcohol abuse, alcoholic gastritis, history of Edwina-Almeida tear present to the hospital with chief complaint of hematemesis. Hematemesis: Currently vitals stable. H&H stable. Concern for Edwina-Almeida tear given multiple episodes of vomiting. NPO. IV fluids. Gastroenterology consult. Nausea/vomiting: Patient reports that he uses cannabis. Likely cyclic vomiting syndrome versus Alcoholic gastritis-> IV ppi b.i.d.. Zofran p.r.n. Alcohol abuse: Monitor on CIWA protocol. Ativan p.r.n.. Will give the patient on timing, folate, multivitamins. DVT prophylaxis: SCD boots Code status: Full code
--- NOTE | 2021-02-20 05:51 | PC.NURSE ---
ER REPORTS PT IS BEING ADMITTED GOR UPPER GI BLEEDING, HAS A HISTORY OF DARIUSZ TORRES TEAR.
[2021-02-20] MEDS: Pantoprazole Sodium 40 MG/10 ML VIAL IVPUSH (06:07)
[2021-02-20] MEDS: Morphine Sulfate 2 MG/ML CARTRIDGE 1 MG IVPUSH (06:08)
[2021-02-20 06:13] LABS: MANUAL DIFF FLAG NO
[2021-02-20 06:14] VITALS: BP 138/70; PULSE 81; RESP 18; TEMP 37.2; O2SAT 98
[2021-02-20 06:22] LABS: Basophils Percent Auto 0.1 % (0-2); Hematocrit 41.7 % (42-52); Hemoglobin 14.6 g/dl (14.0-18.0); Imm Gran Abs Auto 0.08 X10*3/uL (0.00-0.03); Imm Gran Pct Auto 0.5 % (0.0-0.4); Lymphocytes Absolute Auto 1.6 X10*3/uL (1.2-4.9); Lymphocytes Percent Auto 10.5 % (20-40); Mean Corpuscular Hemoglobin 32.5 pg (27.0-33.0); Mean Corpuscular Volume 92.9 fL (80-98); Mean Platelet Volume 10.6 fL (9.4-12.4); Monocytes Percent Auto 6.6 % (2-11); Neutrophils Absolute Auto 12.7 X10*3/uL (2.0-8.3); Neutrophils Percent Auto 82.3 % (45-73); Platelet Count 224 X10*3/uL (160-400); Red Blood Count 4.49 X10*6/uL (4.60-5.80); Red Cell Distribution Width 11.9 % (11.0-16.0); White Blood Count 15.4 X10*3/uL (4.8-10.8)
[2021-02-20 06:42] LABS: Iron 146 mcg/dL (45-160); Percent Iron Saturation 54 % (15-50); Total Iron Binding Capacity 272 mcg/dL (228-428); Unsaturated Iron Binding 126 ug/dL
[2021-02-20 06:44] LABS: Anion Gap 15 (12-20); Blood Urea Nitrogen 28 mg/dL (9-16); Calcium 9.2 mg/dL (8.4-10.2); Carbon Dioxide 22 mmol/L (22-29); Chloride 110 mmol/L (96-108); Creatinine Clr Calc Pharmacy 95.6; Estimated Glomerular Filt Rate > 60; Glucose Random 103 mg/dL (60-115); Sodium 143 mmol/L (135-145)
[2021-02-20] MEDS: Dextrose 5 % and 0.45 % NaCl 1,000 ML 100 ML IVCONT (07:34)
[2021-02-20] MEDS: Thiamine HCL 100 MG TABLET PO (08:24)
[2021-02-20] MEDS: Folic Acid 1 MG TABLET PO (08:25)
[2021-02-20 09:51] VITALS: BP 120/77; PULSE 57; RESP 18; O2SAT 98
[2021-02-20 10:13] LABS: Glucose Urine UA NEG (NEG); Leukocyte Esterase Urine NEG (NEG); Nitrite Urine NEG (NEG); PH 6.5 (5.0-8.0); Urine Blood NEG (NEG); Urine Ketones >=80 MG/DL (NEG); Urine Protein TRACE MG/DL (NEG-TRACE)
[2021-02-20 10:24] LABS: Appearance Urine CLEAR; Color Urine YELLOW
[2021-02-20 10:27] LABS: Amphetamine Screen Urine Not Detected (Not Detect); Barbiturates, Urine Not Detected (Not Detect); Benzodiazepines Screen Urine Not Detected (Not Detect); Cannabinoid Screen Urine POSITIVE (Not Detect); Cocaine Screen Urine Not Detected (Not Detect); Opiate Screen Urine POSITIVE (Not Detect); Phencyclidine Screen Urine Not Detected (Not Detect)
--- NOTE | 2021-02-20 11:03 | PC.NURSE ---
Pt states that he wants to leave the hospital AMA. Hospitalist Marychuy notified. Stated to give patient AMA paperwork.
--- NOTE | 2021-02-20 12:15 | P.DS_ITS ---
DS: Providers Provider Date of Service: 02/20/21 Date of admission: 02/20/21 05:20 Primary care physician: None Physician Consults: 02/20/21 05:21 Consult to Gastroenterology Routine Consulting Provider: Jakob Monahan Reason for consultation: hematemesis; etoh abuse DS: Diagnosis Discharge Diagnosis (1) Hematemesis: Status: Acute DS: Medications Discharge Medications Home Medications: Home Medications Medication Instructions Recorded Confirmed No Known Home Meds 02/20/21 02/20/21 DS: Summary Hospital Course Hospital Course: Chief Complaint: Hematemesis 26-year-old male with a past medical history of alcohol abuse, alcoholic gastritis, history of arrest air presented to the hospital with a chief complaint of nausea/vomiting. February reports that he had multiple episodes of nausea and vomiting. And today he had an episode of blood in the vomitus. Complains of abdominal discomfort secondary to vomiting. Denies any chest pain palpitations. Denies any numbness tingling. Mentioned that he has been drinking alcohol, he binge drinks alcohol, last drink was 2 days ago. Denies any seizure-like activity. Denies any fever chills cough. Review of all other systems is negative except mentioned above ER course: Per ER team patient's exam was essentially benign, noted to have mild leukocytosis, hemoglobin stable, chemistry within the normal limits, liver panel within normal limits, given famotidine. Admitted to the hospital for further management. Hospital course: He left AMA from ED, prescribed priolosec, instructed to avoid substance and alcohol. And he assume full responsibility for leaving AMA, including posibility of Time Spent with Patient Time attestation: Total time spent providing and/or coordinating discharge services: Discharge coordination time: Less than 30 minutes Quality: Stroke Does the patient have a stroke diagnosis?: No Physical Exam Vital Signs: Vital Signs: Last Vital Signs Temp 99 F 02/20/21 06:14 Pulse 57 02/20/21 09:51 Resp 18 02/20/21 09:51 BP 120/77 02/20/21 09:51 Pulse Ox 98 02/20/21 09:51 Body Mass Index 22.7 DS: Data Data Completed and Pending Labs on day of discharge: Laboratory Results - last 24 hr 02/20/21 02/20/21 02/20/21 04:35 04:35 04:35 WBC 17.5 H RBC 4.86 Hgb 15.9 Hct 44.6 MCV 91.8 MCH 32.7 MCHC 35.7 RDW 11.8 Plt Count 250 MPV 10.2 Immature Gran % (Auto) 0.4 Neut % (Auto) 79.6 H Lymph % (Auto) 13.6 L [place] % (Auto) 6.3 Eos % (Auto) 0.0 Baso % (Auto) 0.1 Lymph # (Auto) 2.4 [place] # (Auto) 1.1 Eos # (Auto) 0.0 Baso # (Auto) 0.0 Abs Immat Gran (auto) 0.07 H Absolute Neuts (auto) 14.0 H Absolute Nucleated RBC 0.000 Nucleated RBC % (auto) 0.0 Sodium 143 Potassium 4.2 Chloride 106 Carbon Dioxide 20 L Anion Gap 21 H BUN 31 H D Creatinine 1.26 Estim Creat Clear Calc 81.1 Estimated GFR > 60 Random Glucose 130 H D Calcium 10.2 D Iron TIBC % Saturation Unsat Iron Binding Total Bilirubin 1.3 H Direct Bilirubin 0.5 AST 22 ALT 17 Alkaline Phosphatase 76 Total Protein 8.5 H Albumin 5.2 H Lipase 22 Urine Color Urine Appearance Urine pH Ur Specific [place] Urine Protein Urine Glucose (UA) Urine Ketones Urine Blood Urine Nitrite Ur Leukocyte Esterase Gastric Occult Blood Urine Opiates Screen Ur Barbiturates Screen Ur Phencyclidine Scrn Ur Amphetamines Screen U Benzodiazepines Scrn Urine Cocaine Screen U Marijuana (THC) Screen Ethyl Alcohol < 10 COVID-19 (DEIRDRE) COVID-19 Clin Com 02/20/21 02/20/21 02/20/21 04:35 04:35 06:06 WBC RBC Hgb Hct MCV MCH MCHC RDW Plt Count MPV Immature Gran % (Auto) Neut % (Auto) Lymph % (Auto) [place] % (Auto) Eos % (Auto) Baso % (Auto) Lymph # (Auto) [place] # (Auto) Eos # (Auto) Baso # (Auto) Abs Immat Gran (auto) Absolute Neuts (auto) Absolute Nucleated RBC Nucleated RBC % (auto) Sodium Potassium Chloride Carbon Dioxide Anion Gap BUN Creatinine Estim Creat Clear Calc Estimated GFR Random Glucose Calcium Iron 146 TIBC 272 % Saturation 54 H Unsat Iron Binding 126 Total Bilirubin Direct Bilirubin AST ALT Alkaline Phosphatase Total Protein Albumin Lipase Urine Color Urine Appearance Urine pH Ur Specific [place] Urine Protein Urine Glucose (UA) Urine Ketones Urine Blood Urine Nitrite Ur Leukocyte Esterase Gastric Occult Blood POS Urine Opiates Screen Ur Barbiturates Screen Ur Phencyclidine Scrn Ur Amphetamines Screen U Benzodiazepines Scrn Urine Cocaine Screen U Marijuana (THC) Screen Ethyl Alcohol COVID-19 (DEIRDRE) Negative COVID-19 Clin Com See Note 02/20/21 02/20/21 02/20/21 06:06 06:06 09:53 WBC 15.4 H RBC 4.49 L Hgb 14.6 Hct 41.7 L MCV 92.9 MCH 32.5 MCHC 35.0 RDW 11.9 Plt Count 224 MPV 10.6 Immature Gran % (Auto) 0.5 H Neut % (Auto) 82.3 H Lymph % (Auto) 10.5 L [place] % (Auto) 6.6 Eos % (Auto) 0.0 Baso % (Auto) 0.1 Lymph # (Auto) 1.6 [place] # (Auto) 1.0 Eos # (Auto) 0.0 Baso # (Auto) 0.0 Abs Immat Gran (auto) 0.08 H Absolute Neuts (auto) 12.7 H Absolute Nucleated RBC 0.000 Nucleated RBC % (auto) 0.0 Sodium 143 Potassium 4.0 Chloride 110 H Carbon Dioxide 22 Anion Gap 15 BUN 28 H Creatinine 1.07 Estim Creat Clear Calc 95.6 Estimated GFR > 60 Random Glucose 103 Calcium 9.2 D Iron TIBC % Saturation Unsat Iron Binding Total Bilirubin Direct Bilirubin AST ALT Alkaline Phosphatase Total Protein Albumin Lipase Urine Color YELLOW Urine Appearance CLEAR Urine pH 6.5 Ur Specific [place] 1.020 Urine Protein TRACE Urine Glucose (UA) NEG Urine Ketones >=80 Urine Blood NEG Urine Nitrite NEG Ur Leukocyte Esterase NEG Gastric Occult Blood Urine Opiates Screen Ur Barbiturates Screen Ur Phencyclidine Scrn Ur Amphetamines Screen U Benzodiazepines Scrn Urine Cocaine Screen U Marijuana (THC) Screen Ethyl Alcohol COVID-19 (DEIRDRE) COVID-19 [employer] Com 02/20/21 09:53 WBC RBC Hgb Hct MCV MCH MCHC RDW Plt Count MPV Immature Gran % (Auto) Neut % (Auto) Lymph % (Auto) [place] % (Auto) Eos % (Auto) Baso % (Auto) Lymph # (Auto) [place] # (Auto) Eos # (Auto) Baso # (Auto) Abs Immat Gran (auto) Absolute Neuts (auto) Absolute Nucleated RBC Nucleated RBC % (auto) Sodium Potassium Chloride Carbon Dioxide Anion Gap BUN Creatinine Estim Creat Clear Calc Estimated GFR Random Glucose Calcium Iron TIBC % Saturation Unsat Iron Binding Total Bilirubin Direct Bilirubin AST ALT Alkaline Phosphatase Total Protein Albumin Lipase Urine Color Urine Appearance Urine pH Ur Specific [place] Urine Protein Urine Glucose (UA) Urine Ketones Urine Blood Urine Nitrite Ur Leukocyte Esterase Gastric Occult Blood Urine Opiates Screen POSITIVE H Ur Barbiturates Screen Not Detected Ur Phencyclidine Scrn Not Detected Ur Amphetamines Screen Not Detected U Benzodiazepines Scrn Not Detected Urine Cocaine Screen Not Detected U Marijuana (THC) Screen POSITIVE H Ethyl Alcohol COVID-19 (DEIRDRE) COVID-19 Clin Com Discharge Plan Discharge Anticipated Discharge Date/Time: 02/20/21 11:13 Patient Disposition: Left Against Medical Advice Discharge Diagnosis: Vomiting Referrals: Physician,None [Primary Care Provider] - 1 Week Discharge Medications: New omeprazole 40 mg capsule,delayed release(DR/EC) 40 mg PO DAILY 12 Days Qty: 12 RF: 0 No Action No Known Home Meds RF: 0 Discharge Orders: Discharge Order (Routine); Ordered 02/20/21 Ordered By: [facility] Care Plan Goals: AMA Health Concerns: AMA Plan of Treatment: you are leaving agtainst medical advise and assume all responsibilities including , go see your doctor as soon as possible you may return to the hospital if you wish Assessment: See above Discharge Date/Time: 02/20/21 11:38
== END 2021-02-20 11:38 | disposition left against medical advice (07) | DRG 253 ==
LOC: HO.ED 05:22 → HO.EDOVER 05:28
PROVIDERS: Admitting Provider Hospitalist; Emergency Provider Emergency Medicine; Visit Provider Internal Medicine
DX: K92.0 Hematemesis (principal); D72.829 Elevated white blood cell count, unspecified; F10.10 Alcohol abuse, uncomplicated; Z20.822 Contact with and (suspected) exposure to COVID-19
CPT/HCPCS: 36415; 80048; 80076; 80307; 80320; 81003; 82271; 83540; 83690; 85025; 87635; 96374; 96375; 99219; 99285; J2270; J2405

== ENCOUNTER 2021-04-12 07:35 | Emergency (ER) | payer MEDICAID, SELFPAY ==
[2021-04-12 07:42] VITALS: PULSE 82; RESP 18; O2SAT 96; BMI 21.9
[2021-04-12] MEDS: 0.9 % Sodium Chloride 1,000 ML 999 ML IVCONT ×2 (08:05→09:01)
--- NOTE | 2021-04-12 08:08 | ED_ITS ---
HPI - Nausea/Vomiting/Diarrhea General Chief complaint: Nausea/Vomiting/Diarrhea Stated complaint: vomiting Time Seen by Provider: 04/12/21 07:54 Source: patient Mode of arrival: ambulatory Limitations: no limitations History of Present Illness MD elicited complaint: nausea, vomiting and abdominal pain Pertinent past history: other (alcohol gastritis) Onset (ago): day(s) (started the night of April 10 after ETOH use) Description of vomiting: food contents and watery Associated abdominal pain: Yes Location of pain: epigastric Pain consistency: constant Severity: severe Quality: stabbing Exacerbating factors: eating Relieving factors: none Context: alcohol abuse Associated symptoms: loss of appetite, malaise and nausea/vomiting Related Data Previous Rx's Medication Instructions Recorded famotidine [Pepcid] 20 mg PO DAILY PRN #30 tab 04/12/21 ondansetron 4 mg PO Q8H PRN #20 tab 04/12/21 Allergies Allergy/AdvReac Type Severity Reaction Status Date / Time No Known Allergies Allergy Verified 07/27/20 12:55 [No Known Allergies*] Review of Systems Review of Systems: Constitutional : No Weight loss, No Fever, No Chills ENT/Mouth : No sore throat, No Rhinorrhea Eyes: No Swelling, No Redness Cardiovascular : No Chest Pain, No SOB, NoEdema Respiratory : No Cough, No Sputum, No Wheezing Gastrointestinal : Positive Nausea, Positive Vomiting, no Diarrhea, positive abdominal Pain, No Hematochezia, No Melena Genitourinary : No Dysuria, No Urinary Frequency, No Hematuria, No Urgency Musculoskeletal : No joint pain, No Myalgias, No Joint Swelling Skin : No Skin Lesions, No rash Neuro : No Weakness, No Numbness, No Dizziness, No Headache Psych : No Anxiety/Panic, No Depression Heme/Lymph: No Bruising, No Lymphadenopathy Endocrine : No Polyuria, No Polydipsia All other systems reviewed and are negative. [facility] Past Medical History Attestation statement: The following information was validated with the patient. Medical History Gastritis Healthy adult Surgical History History of appendectomy Social History Social History Alcohol intake: current Alcohol intake frequency: 0-2 drinks per day Patient Tobacco Use Status: Current everyday Tobacco user Substance Use Type: Marijuana Advance Directives: Yes Advance Directives Information Provided: Yes Advance Directives on File: No Physical Exam Vital Signs: Vital Signs: Last Vital Signs Pulse 94 04/12/21 08:56 Resp 17 04/12/21 08:56 BP 102/50 L 04/12/21 08:56 Pulse Ox 98 04/12/21 08:56 Body Mass Index 21.9 Appearance: Alert. Oriented X3. Anxious mild acute distress. Active emesis in ED Eyes: Pupils equal, round and reactive to light. ENT: Pharynx moderate dry MM Neck: Normal inspection. Neck supple. CVS: Normal heart rate and rhythm. Pulses normal. Respiratory: No respiratory distress. Breath sounds normal. Abdomen: Soft and mild epigastric ttp no rebound or guarding Skin: Skin warm and dry. pale skin color. Normal skin turgor. Extremities: No lower extremity edema. No calf ttp Neuro: Oriented X 3. No motor deficit. No sensory deficit. Course Course Course Narrative: repeat labs stable, feels much better, tolerating PO stable for DC MDM - Nausea/Vomiting/Diarrhea MDM Narrative Medical decision making narrative: 26 yo male with hx of ETOH gastritis and vomiting - at this time will need labs, IVF x 2L, anti emetics and pepcid - hx of same at this time liver and pancreas labs ordered, doubt biliary colic, dispo per results and improvement/PO challenge Lab Data Result diagrams: 04/12/21 08:08 04/12/21 11:31 Labs: Lab Results 04/12/21 04/12/21 04/12/21 Range/Units 08:08 08:08 08:08 WBC 20.0 H (4.8-10.8) X10*3/uL RBC 4.86 (4.60-5.80) X10*6/uL Hgb 15.8 (14.0-18.0) g/dl Hct 44.7 (42-52) % MCV 92.0 (80-98) fL MCH 32.5 (27.0-33.0) pg MCHC 35.3 (31.0-36.0) g/dl RDW 11.8 (11.0-16.0) % Plt Count 303 D (160-400) X10*3/uL MPV 10.2 (9.4-12.4) fL Immature Gran % (Auto) 0.5 H (0.0-0.4) % Neut % (Auto) 83.6 H (45-73) % Lymph % (Auto) 12.4 L (20-40) % [place] % (Auto) 3.4 (2-11) % Eos % (Auto) 0.0 (0-4) % Baso % (Auto) 0.1 (0-2) % Lymph # (Auto) 2.5 (1.2-4.9) X10*3/uL [place] # (Auto) 0.7 (0.1-1.2) X10*3/uL Eos # (Auto) 0.0 (0.0-0.4) X10*3/uL Baso # (Auto) 0.0 (0.0-0.2) X10*3/uL Abs Immat Gran (auto) 0.11 H (0.00-0.03) X10*3/uL Absolute Neuts (auto) 16.7 H (2.0-8.3) X10*3/uL Absolute Nucleated RBC 0.000 (0.0-0.012) X10*3/uL Nucleated RBC % (auto) 0.0 (0.0-0.2) /100WBC Sodium 143 (135-145) mmol/L Potassium 4.3 (3.3-5.1) mmol/L Chloride 104 (96-108) mmol/L Carbon Dioxide 18 L (22-29) mmol/L Anion Gap 25 H (12-20) BUN 29 H (9-16) mg/dL Creatinine 1.25 (0.5-1.4) mg/dL Estim Creat Clear Calc 79.0 Estimated GFR > 60 Random Glucose 115 (60-115) mg/dL Calcium 10.6 H D (8.4-10.2) mg/dL Magnesium 2.3 (1.6-2.6) mg/dL Total Bilirubin 1.2 H (0.0-1.0) mg/dL Direct Bilirubin 0.5 (0.0-0.5) mg/dL AST 23 (5-37) U/L ALT 20 (0-40) U/L Alkaline Phosphatase 81 (39-117) U/L Total Protein 8.7 H (6.5-8.0) g/dL Albumin 5.1 H (3.5-5.0) g/dL Lipase 30 (8-78) U/L Ethyl Alcohol < 10 mg/dL 04/12/21 Range/Units 11:31 WBC (4.8-10.8) X10*3/uL RBC (4.60-5.80) X10*6/uL Hgb (14.0-18.0) g/dl Hct (42-52) % MCV (80-98) fL MCH (27.0-33.0) pg MCHC (31.0-36.0) g/dl RDW (11.0-16.0) % Plt Count (160-400) X10*3/uL MPV (9.4-12.4) fL Immature Gran % (Auto) (0.0-0.4) % Neut % (Auto) (45-73) % Lymph % (Auto) (20-40) % [place] % (Auto) (2-11) % Eos % (Auto) (0-4) % Baso % (Auto) (0-2) % Lymph # (Auto) (1.2-4.9) X10*3/uL [place] # (Auto) (0.1-1.2) X10*3/uL Eos # (Auto) (0.0-0.4) X10*3/uL Baso # (Auto) (0.0-0.2) X10*3/uL Abs Immat Gran (auto) (0.00-0.03) X10*3/uL Absolute Neuts (auto) (2.0-8.3) X10*3/uL Absolute Nucleated RBC (0.0-0.012) X10*3/uL Nucleated RBC % (auto) (0.0-0.2) /100WBC Sodium 141 (135-145) mmol/L Potassium 4.2 (3.3-5.1) mmol/L Chloride 108 (96-108) mmol/L Carbon Dioxide 24 (22-29) mmol/L Anion Gap 13 (12-20) BUN 23 H (9-16) mg/dL Creatinine 1.01 (0.5-1.4) mg/dL Estim Creat Clear Calc 97.8 Estimated GFR > 60 Random Glucose 87 (60-115) mg/dL Calcium 9.2 D (8.4-10.2) mg/dL Magnesium (1.6-2.6) mg/dL Total Bilirubin (0.0-1.0) mg/dL Direct Bilirubin (0.0-0.5) mg/dL AST (5-37) U/L ALT (0-40) U/L Alkaline Phosphatase (39-117) U/L Total Protein (6.5-8.0) g/dL Albumin (3.5-5.0) g/dL Lipase (8-78) U/L Ethyl Alcohol mg/dL Critical Care Time Critical Care Time Critical Care Time: Yes Total Critical Care Time: 60 Attestation: 3L of IVF resuscitation, repeat labs I attest to this time spent taking care of the patient Discharge Plan Discharge Clinical Impression: Dehydration Vomiting Qualifiers: Vomiting type: unspecified Vomiting Intractability: non-intractable Nausea presence: with nausea Qualified Code(s): R11.2 - Nausea with vomiting, unspecified Acute alcoholic gastritis Qualifiers: Gastritis bleeding: without bleeding Qualified Code(s): K29.20 - Alcoholic gastritis without bleeding Patient Disposition: Home, Self-Care Instructions: Gastritis (ED), Acute Nausea and Vomiting (ED) Additional Instructions: return to ED for any worsening symptoms or concerns Prescriptions: New famotidine [Pepcid] 20 mg tablet 20 mg PO DAILY PRN (Reason: abdominal discomfort) Qty: 30 RF: 0 ondansetron 4 mg tablet,disintegrating 4 mg PO Q8H PRN (Reason: nausea and vomiting) Qty: 20 RF: 0 Interventions: ED Discharge Assessment Last Done: 04/12/21 12:24 Discharge Date/Time: 04/12/21 12:24
[2021-04-12] MEDS: diphenhydrAMINE HCL 50 MG/ML VIAL 25 MG IVPUSH (08:15)
[2021-04-12 08:17] LABS: MANUAL DIFF FLAG NO
[2021-04-12 08:20] LABS: Basophils Percent Auto 0.1 % (0-2); Hematocrit 44.7 % (42-52); Hemoglobin 15.8 g/dl (14.0-18.0); Imm Gran Abs Auto 0.11 X10*3/uL (0.00-0.03); Imm Gran Pct Auto 0.5 % (0.0-0.4); Lymphocytes Absolute Auto 2.5 X10*3/uL (1.2-4.9); Lymphocytes Percent Auto 12.4 % (20-40); Mean Corpuscular HGB Conc 35.3 g/dl (31.0-36.0); Mean Corpuscular Hemoglobin 32.5 pg (27.0-33.0); Mean Platelet Volume 10.2 fL (9.4-12.4); Monocytes Absolute Auto 0.7 X10*3/uL (0.1-1.2); Monocytes Percent Auto 3.4 % (2-11); Neutrophils Absolute Auto 16.7 X10*3/uL (2.0-8.3); Neutrophils Percent Auto 83.6 % (45-73); Platelet Count 303 X10*3/uL (160-400); Red Blood Count 4.86 X10*6/uL (4.60-5.80); Red Cell Distribution Width 11.8 % (11.0-16.0)
[2021-04-12] MEDS: Famotidine/PF 20 MG/2 ML VIAL IVPUSH (08:20)
[2021-04-12] MEDS: Metoclopramide HCl 10 MG/2 ML VIAL IVPUSH (08:22)
[2021-04-12 08:23] VITALS: BP 120/67; PULSE 87; RESP 18; O2SAT 98
[2021-04-12 08:42] LABS: Alanine Aminotransferase 20 U/L (0-40); Albumin Level 5.1 g/dL (3.5-5.0); Alkaline Phosphatase 81 U/L (39-117); Aspartate Amino Transferase 23 U/L (5-37); Bilirubin Direct 0.5 mg/dL (0.0-0.5); Bilirubin Total 1.2 mg/dL (0.0-1.0); Lipase 30 U/L (8-78); Magnesium 2.3 mg/dL (1.6-2.6); Total Protein 8.7 g/dL (6.5-8.0)
[2021-04-12 08:50] LABS: Ethanol < 10 mg/dL
[2021-04-12 08:56] VITALS: BP 102/50; PULSE 94; RESP 17; O2SAT 98
--- NOTE | 2021-04-12 08:57 | PC.NURSE ---
Patient states nausea is improving and that abdominal pain is getting better. Pt is no longer spitting and dry heaving as he did when he first arrived in ER
[2021-04-12 09:16] LABS: Anion Gap 25 (12-20); Blood Urea Nitrogen 29 mg/dL (9-16); Calcium 10.6 mg/dL (8.4-10.2); Carbon Dioxide 18 mmol/L (22-29); Chloride 104 mmol/L (96-108); Estimated Glomerular Filt Rate > 60; Glucose Random 115 mg/dL (60-115); Potassium 4.3 mmol/L (3.3-5.1); Sodium 143 mmol/L (135-145)
[2021-04-12] MEDS: Lactated Ringers 1,000 ML 999 ML IV (09:50)
--- NOTE | 2021-04-12 09:50 | PC.NURSE ---
Pt remains in bed resting quietly. Pt states nausea is gone currently
--- NOTE | 2021-04-12 11:20 | PC.NURSE ---
Patient given gingerale for PO challenge
--- NOTE | 2021-04-12 12:00 | PC.NURSE ---
Pt states he is feeling much better. Pt denies abdominal pain and has tolerated fluids well.
[2021-04-12 12:08] LABS: Anion Gap 13 (12-20); Blood Urea Nitrogen 23 mg/dL (9-16); Carbon Dioxide 24 mmol/L (22-29); Chloride 108 mmol/L (96-108); Creatinine Clr Calc Pharmacy 97.8; Estimated Glomerular Filt Rate > 60; Glucose Random 87 mg/dL (60-115); Potassium 4.2 mmol/L (3.3-5.1); Sodium 141 mmol/L (135-145)
[2021-04-12 12:31] LABS: Calcium 9.2 mg/dL (8.4-10.2)
== END 2021-04-12 12:24 | disposition home or self-care (01) ==
PROVIDERS: Emergency Provider Emergency Medicine
DX: K29.20 Alcoholic gastritis without bleeding (principal); R11.2 Nausea with vomiting, unspecified; E86.0 Dehydration; F17.210 Nicotine dependence, cigarettes, uncomplicated; F12.90 Cannabis use, unspecified, uncomplicated
CPT/HCPCS: 36415; 80048; 80076; 82077; 83690; 83735; 85025; 96361; 96374; 96375; 99284; 99291; J1200; J2765

== ENCOUNTER 2021-10-07 15:58 | Emergency (ER) | payer MEDICAID, SELFPAY ==
[2021-10-07 16:39] VITALS: BP 116/92; PULSE 86; RESP 18; TEMP 36.8; O2SAT 98; BMI 24.3
--- NOTE | 2021-10-07 17:45 | ED.SKABFB ---
HPI - Skin/Abscess/Foreign Bdy General Chief complaint: Skin/Abscess/Foreign Body Stated complaint: SPIDER BITE Time Seen by Provider: 10/07/21 17:40 History of Present Illness HPI narrative: Patient complains of painful red area on his left foot for 3 days, no fever chills no joint pains Related Data Previous Rx's Medication Instructions Recorded famotidine 20 mg tablet (Pepcid) 20 mg PO DAILY PRN #30 tab 04/12/21 ondansetron 4 mg disintegrating 4 mg PO Q8H PRN #20 tab 04/12/21 tablet cephalexin 500 mg tablet 500 mg PO QID 7 Days #28 tab 10/07/21 doxycycline hyclate 100 mg capsule 100 mg PO BID 7 Days #14 cap 10/07/21 Allergies Allergy/AdvReac Type Severity Reaction Status Date / Time No Known Allergies Allergy Verified 10/07/21 16:39 [No Known Allergies*] Review of Systems Review of Systems: Positive for right foot redness and pain Negatives are no fever no chills no dizziness no weakness no headache no neck pain no chest pain no shortness of breath no numbness no weakness no tingling no difficulty walking Yes all other systems are reviewed and are negative PMFSH Past Medical History Source: nursing notes reviewed Medical History Gastritis Healthy adult Surgical History History of appendectomy Social History Social History Alcohol intake: current Alcohol intake frequency: 0-2 drinks per day Patient Tobacco Use Status: Current everyday Tobacco user Substance Use Type: Marijuana Advance Directives: No Advance Directives Information Provided: No Physical Exam Vital Signs: Vital Signs: Last Vital Signs Temp 98.3 F 10/07/21 16:39 Pulse 86 10/07/21 16:39 Resp 18 10/07/21 16:39 BP 116/92 H 10/07/21 16:39 Pulse Ox 98 10/07/21 16:39 BMI result Body Mass Index 24.3 General appearance no distress Head is normocephalic atraumatic Neck is supple Respiratory no distress Extremities full range of motion x4 The right foot had redness warmth and tenderness on the dorsum of the foot shows no swelling no induration no fluctuance, there is full range of motion in all joints there is no wound or break in the skin, no discharge and no lymphangitis, motor function and sensation are intact and normal distal and pulses 2+ dorsalis pedis Course Course Course Narrative: Well-appearing patient with right foot cellulitis is discharged with antibiotics to return in 2-3 days if not improved Discharge Plan Discharge Clinical Impression: Cellulitis of foot, left Patient Disposition: Home, Self-Care Additional Instructions: We are prescribing 2 antibiotics for your skin infection Return any time for spreading redness worse pain and swelling fever red stripe up the leg any worse condition or any concerns If not improving return to the ER in 3-4 days for recheck Prescriptions: New doxycycline hyclate 100 mg capsule 100 mg PO BID 7 Days Qty: 14 RF: 0 cephalexin 500 mg tablet 500 mg PO QID 7 Days Qty: 28 RF: 0 No Action famotidine [Pepcid] 20 mg tablet 20 mg PO DAILY PRN (Reason: abdominal discomfort) Qty: 30 RF: 0 ondansetron 4 mg tablet,disintegrating 4 mg PO Q8H PRN (Reason: nausea and vomiting) Qty: 20 RF: 0 Interventions: ED Discharge Assessment Last Done: 10/07/21 17:52 Discharge Date/Time: 10/07/21 18:03
[2021-10-07] MEDS: cephALEXin 500 MG CAPSULE PO (17:47)
== END 2021-10-07 18:03 | disposition home or self-care (01) ==
PROVIDERS: Emergency Provider Emergency Medicine Emergency Medical Services
DX: L03.116 Cellulitis of left lower limb (principal); M79.672 Pain in left foot; I10 Essential (primary) hypertension; F17.200 Nicotine dependence, unspecified, uncomplicated; F12.90 Cannabis use, unspecified, uncomplicated
CPT/HCPCS: 99283

== ENCOUNTER 2022-06-25 04:52 | Emergency (ER) | payer MEDICAID, SELFPAY ==
[2022-06-25 05:05] VITALS: BP 132/83; PULSE 107; RESP 18; TEMP 36.9; O2SAT 100; BMI 22.7
[2022-06-25 05:20] LABS: Basophils Percent Auto 0.1 % (0-2); Hematocrit 47.4 % (42.0-52.0); Hemoglobin 16.7 g/dl (14.0-18.0); Imm Gran Abs Auto 0.17 X10*3/uL (0.00-0.03); Imm Gran Pct Auto 0.8 % (0.0-0.4); Lymphocytes Absolute Auto 1.9 X10*3/uL (1.2-4.9); Lymphocytes Percent Auto 8.4 % (20-40); MANUAL DIFF FLAG NO; Mean Corpuscular HGB Conc 35.2 g/dl (31.0-36.0); Mean Corpuscular Hemoglobin 32.8 pg (27.0-33.0); Mean Corpuscular Volume 93.1 fL (80.0-98.0); Mean Platelet Volume 9.9 fL (9.4-12.4); Monocytes Percent Auto 4.6 % (2-11); Neutrophils Absolute Auto 19.2 x10*3/uL (2.0-8.3); Neutrophils Percent Auto 86.1 % (45-73); Platelet Count 318 X10*3/uL (160-400); Red Blood Count 5.09 X10*6/uL (4.60-5.80); Red Cell Distribution Width 12.1 % (11.0-16.0); White Blood Count 22.3 X10*3/uL (4.8-10.8)
[2022-06-25 05:36] LABS: Ethanol < 10 mg/dL
[2022-06-25 05:42] LABS: Alanine Aminotransferase 23 U/L (0-40); Albumin Level 5.2 g/dL (3.5-5.0); Alkaline Phosphatase 86 U/L (39-117); Anion Gap 27 (12-20); Aspartate Amino Transferase 24 U/L (5-37); Bilirubin Direct 0.4 mg/dL (0.0-0.5); Bilirubin Total 0.8 mg/dL (0.0-1.0); Blood Urea Nitrogen 40 mg/dL (9-16); Calcium 10.1 mg/dL (8.4-10.2); Carbon Dioxide 21 mmol/L (22-29); Chloride 100 mmol/L (96-108); Creatinine Clr Calc Pharmacy 64.1; Estimated Glomerular Filt Rate 52; Glucose Random 152 mg/dL (60-115); Lipase 30 U/L (8-78); Potassium 4.5 mmol/L (3.3-5.1); Sodium 143 mmol/L (135-145)
[2022-06-25] MEDS: Ondansetron ODT 4 MG TAB.RAPDIS TRANSLINGU (07:59)
== END 2022-06-25 09:06 | disposition left against medical advice (07) ==
PROVIDERS: Emergency Medicine; Emergency Provider Emergency Medicine
DX: R31.9 Hematuria, unspecified (principal); Z79.899 Other long term (current) drug therapy
CPT/HCPCS: 36415; 80048; 80076; 82077; 83690; 85025; 99281; 99282

== ENCOUNTER 2022-08-27 04:43 | Emergency (ER) | payer MEDICAID, SELFPAY ==
--- NOTE | ~2022-08-27 | XR_ITS ---
EXAMINATION: XR PORTABLE CHEST CLINICAL INFORMATION: low suspicion ulcer perf/free air COMPARISON: 04/19/2019 TECHNIQUE: AP portable upright view of the chest FINDINGS: Lungs are clear. No consolidation, pneumothorax, or pleural effusion. Cardiac and mediastinal contours are normal. Pulmonary vasculature is unremarkable. Osseous structures are unremarkable. XR/XR chest 1V IMPRESSION: No acute cardiopulmonary findings
[2022-08-27 04:51] VITALS: BP 141/100; PULSE 104; RESP 18; TEMP 36.7; O2SAT 97; BMI 22.7
--- NOTE | 2022-08-27 05:06 | ED_ITS ---
HPI - Nausea/Vomiting/Diarrhea General Chief complaint: Abdominal Pain Stated complaint: threw up blood Time Seen by Provider: 08/27/22 04:57 Source: patient Mode of arrival: ambulatory Limitations: no limitations History of Present Illness HPI Narrative: Patient comes in the emergency room complaining of vomiting for couple of days. Patient states that he saw blood in the vomit. In triage, the patient's nurse saw the patient threw up pink vomit, patient has been drinking pink color vitamin water. Patient complaining of diffuse abdominal pain mostly from vomiting. Denies diarrhea, no fever or chills. Patient admits that he has been binge drinking and smoking marijuana Related Data Previous Rx's Medication Instructions Recorded famotidine 20 mg tablet (Pepcid) 20 mg PO DAILY PRN abdominal 04/12/21 discomfort #30 tabs ondansetron 4 mg disintegrating 4 mg PO Q8H PRN nausea and 04/12/21 tablet vomiting #20 tabs cephalexin 500 mg tablet 500 mg PO QID 7 days #28 tabs 10/07/21 doxycycline hyclate 100 mg capsule 100 mg PO BID 7 days #14 caps 10/07/21 omeprazole 40 mg capsule,delayed 40 mg PO DAILY #30 caps 08/27/22 release ondansetron HCl 4 mg tablet 4 mg PO Q6H PRN nausea and 08/27/22 vomiting #20 tabs Allergies Allergy/AdvReac Type Severity Reaction Status Date / Time No Known Allergies Allergy Verified 06/25/22 05:07 [No Known Allergies*] Review of Systems Review of Systems: Constitutional : No Weight loss, No Fever, No Chills, No Night Sweats, No Fatigue, No Malaise ENT/Mouth : No Hearing loss, No Ear Pain, No Nasal Congestion, No Sinus Pain, No Hoarseness, No sore throat, No Rhinorrhea, No Swallowing Difficulty Eyes: No Eye Pain, No Swelling, No Redness, No Foreign Body, No Discharge, No Vision Changes Cardiovascular : No Chest Pain, No SOB, No Dyspnea on Exertion, No Orthopnea, No Edema, No Palpitations Respiratory : No Cough, No Sputum, No Wheezing, No Smoke Exposure, No Dyspnea Gastrointestinal : Complaining of nausea and vomiting, No Diarrhea, No Constipation, complaining of diffuse abdominal pain, No Hematochezia, No Melena Genitourinary : no irregular bleeding, No Dysuria, No Urinary Frequency, No Hematuria, No Urinary Incontinence, No Urgency, No Flank Pain, No Urinary Flow Changes, No Hesitancy Musculoskeletal : No joint pain, No Myalgias, No Joint Swelling Skin : No Skin Lesions, No rash Neuro : No Weakness, No Numbness, No Paresthesias, No Loss of Consciousness, No Dizziness, No Headache Psych : No Anxiety/Panic, No Depression, No SI/HI/AH/VH, No Social Issues, Heme/Lymph: No Bruising, No Bleeding,No Lymphadenopathy Endocrine : No Polyuria, No Polydipsia, No Temperature Intolerance [facility] Past Medical History Medical History Gastritis Healthy adult Surgical History History of appendectomy Social History Social History Alcohol intake: current Alcohol intake frequency: 0-2 drinks per day Patient Tobacco Use Status: Current everyday Tobacco user Substance Use Type: Marijuana Advance Directives: No Advance Directives Information Provided: Yes Physical Exam Vital Signs: Vital Signs: Last Vital Signs Temp 98.1 F 08/27/22 04:51 Pulse 104 H 08/27/22 04:51 Resp 18 08/27/22 04:51 BP 141/100 H 08/27/22 04:51 Pulse Ox 97 08/27/22 04:51 O2 Del Method 08/27/22 04:51 BMI result Body Mass Index 22.7 Const: Other: Appearance: Alert. Oriented X3. No acute distress. Eyes: Pupils equal, round and reactive to light. ENT: Pharynx normal. Neck: Normal inspection. Neck supple. No lymph nodes noted. No crepitus CVS: Normal heart rate and rhythm. Pulses normal. Normal S1 and S2 Respiratory: No respiratory distress. Breath sounds normal. No Wheezing. No rales Abdomen: Soft, mild abdominal discomfort to palpation in all quadrants, No rigidity. No distention. No rebound, no guarding Skin: Skin warm and dry. Normal skin color. Normal skin turgor. Extremities: No lower extremity edema. No Lacerations. No Rash Neuro: Oriented X 3. No motor deficit. No sensory deficit. Moving all extremities. No slurred speech. CN 2 through 12 grossly intact Psych: calm, cooperative, normal affect Course Course Course Narrative: all Of patient's labs are pending. Patient given IV fluids, Protonix and Zofran. Chest x-ray to rule out free air under the diaphragm pending, low suspicion of perforation. Patient's symptoms most compatible with gastritis. Guaiac test pending Guaiac test is negative, patient has chronic elevated white blood cell count. At this time, patient states that he feels much better. Anion gap is 25, likely secondary from vomiting/dehydration. Patient receiving a 2 L of fluids. Basic metabolic panel to be repeated at approximately 07:15. At this time, patient requesting to be p.o. challenged, he is trying to ingest eyes with general. If he tolerates that, patient will likely be discharge home. Medications Administered Discontinued Medications Generic Name Dose Route Start Last Admin Trade Name Freq PRN Reason Stop Dose Admin Sodium Chloride 1,000 mls @ 999 mls/hr 08/27/22 05:04 08/27/22 05:22 Ns IVCONT 08/27/22 06:04 999 mls/hr .Q1H1M ONE Administration Ondansetron HCl 4 mg 08/27/22 05:04 08/27/22 05:22 Ondansetron Hcl 4 Mg/2 Ml Vial IVPUSH 08/27/22 05:05 4 mg ONCE ONE Administration Pantoprazole Sodium 80 mg 08/27/22 05:04 08/27/22 05:22 Pantoprazole Sodium 40 Mg/10 Ml Vial IVPUSH 08/27/22 05:05 80 mg ONCE ONE Administration MDM - Nausea/Vomiting/Diarrhea Lab Data Result diagrams: 08/27/22 05:18 08/27/22 05:18 Labs: Lab Results 08/27/22 08/27/22 08/27/22 Range/Units 05:07 05:18 05:18 WBC 19.8 H (4.8-10.8) X10*3/uL RBC 4.96 (4.60-5.80) X10*6/uL Hgb 16.1 (14.0-18.0) g/dl Hct 45.9 (42.0-52.0) % MCV 92.5 (80.0-98.0) fL MCH 32.5 (27.0-33.0) pg MCHC 35.1 (31.0-36.0) g/dl RDW 11.9 (11.0-16.0) % Plt Count 313 (160-400) X10*3/uL MPV 9.9 (9.4-12.4) fL Immature Gran % (Auto) 0.6 H (0.0-0.4) % Neut % (Auto) 76.7 H (45-73) % Lymph % (Auto) 16.5 L (20-40) % [place] % (Auto) 5.9 (2-11) % Eos % (Auto) 0.1 (0-4) % Baso % (Auto) 0.2 (0-2) % Lymph # (Auto) 3.3 (1.2-4.9) X10*3/uL [place] # (Auto) 1.2 (0.1-1.2) X10*3/uL Eos # (Auto) 0.0 (0.0-0.4) X10*3/uL Baso # (Auto) 0.0 (0.0-0.2) X10*3/uL Abs Immat Gran (auto) 0.11 H (0.00-0.03) X10*3/uL Absolute Neuts (auto) 15.2 H (2.0-8.3) x10*3/uL Absolute Nucleated RBC 0.000 (0.0-0.012) X10*3/uL Nucleated RBC % (auto) 0.0 (0.0-0.2) /100WBC Sodium 144 (135-145) mmol/L Potassium 4.3 (3.3-5.1) mmol/L Chloride 103 (96-108) mmol/L Carbon Dioxide 20 L (22-29) mmol/L Anion Gap 25 H (12-20) BUN 30 H (9-16) mg/dL Creatinine 1.36 (0.5-1.4) mg/dL Estim Creat Clear Calc 74.5 Estimated GFR > 60 Random Glucose 122 H (60-115) mg/dL Calcium 10.7 H (8.4-10.2) mg/dL Total Bilirubin 1.4 H (0.0-1.0) mg/dL Direct Bilirubin 0.4 (0.0-0.5) mg/dL AST 25 (5-37) U/L ALT 18 (0-40) U/L Alkaline Phosphatase 73 (39-117) U/L Total Protein 8.9 H (6.5-8.0) g/dL Albumin 5.4 H (3.5-5.0) g/dL Lipase 15 (8-78) U/L Gastric Occult Blood NEGATIVE (NEG) Ethyl Alcohol mg/dL 08/27/22 Range/Units 05:18 WBC (4.8-10.8) X10*3/uL RBC (4.60-5.80) X10*6/uL Hgb (14.0-18.0) g/dl Hct (42.0-52.0) % MCV (80.0-98.0) fL MCH (27.0-33.0) pg MCHC (31.0-36.0) g/dl RDW (11.0-16.0) % Plt Count (160-400) X10*3/uL MPV (9.4-12.4) fL Immature Gran % (Auto) (0.0-0.4) % Neut % (Auto) (45-73) % Lymph % (Auto) (20-40) % [place] % (Auto) (2-11) % Eos % (Auto) (0-4) % Baso % (Auto) (0-2) % Lymph # (Auto) (1.2-4.9) X10*3/uL [place] # (Auto) (0.1-1.2) X10*3/uL Eos # (Auto) (0.0-0.4) X10*3/uL Baso # (Auto) (0.0-0.2) X10*3/uL Abs Immat Gran (auto) (0.00-0.03) X10*3/uL Absolute Neuts (auto) (2.0-8.3) x10*3/uL Absolute Nucleated RBC (0.0-0.012) X10*3/uL Nucleated RBC % (auto) (0.0-0.2) /100WBC Sodium (135-145) mmol/L Potassium (3.3-5.1) mmol/L Chloride (96-108) mmol/L Carbon Dioxide (22-29) mmol/L Anion Gap (12-20) BUN (9-16) mg/dL Creatinine (0.5-1.4) mg/dL Estim Creat Clear Calc Estimated GFR Random Glucose (60-115) mg/dL Calcium (8.4-10.2) mg/dL Total Bilirubin (0.0-1.0) mg/dL Direct Bilirubin (0.0-0.5) mg/dL AST (5-37) U/L ALT (0-40) U/L Alkaline Phosphatase (39-117) U/L Total Protein (6.5-8.0) g/dL Albumin (3.5-5.0) g/dL Lipase (8-78) U/L Gastric Occult Blood (NEG) Ethyl Alcohol < 10 mg/dL Discharge Plan Discharge Clinical Impression: Alcoholic gastritis, Acute dehydration Patient Disposition: Still a Patient Instructions: Gastritis (ED) Additional Instructions: Please follow-up with your primary care physician tomorrow. If you have any worsening or new symptoms, please return to the emergency room or call 911 Prescriptions: New omeprazole 40 mg capsule,delayed release(DR/EC) 40 mg PO DAILY Qty: 30 0RF ondansetron HCl 4 mg tablet 4 mg PO Q6H PRN (Reason: nausea and vomiting) Qty: 20 0RF No Action famotidine [Pepcid] 20 mg tablet 20 mg PO DAILY PRN (Reason: abdominal discomfort) Qty: 30 0RF ondansetron 4 mg tablet,disintegrating 4 mg PO Q8H PRN (Reason: nausea and vomiting) Qty: 20 0RF doxycycline hyclate 100 mg capsule 100 mg PO BID 7 Days Qty: 14 0RF cephalexin 500 mg tablet 500 mg PO QID 7 Days Qty: 28 0RF
[2022-08-27 05:14] LABS: GASOB Int Neg Ctl Valid YES; GASOB Int Pos Ctl Valid YES; Occult Blood Gastric NEGATIVE (NEG)
[2022-08-27] MEDS: 0.9 % Sodium Chloride 1,000 ML 999 ML IVCONT ×2 (05:22→06:21)
[2022-08-27] MEDS: Pantoprazole Sodium 40 MG/10 ML VIAL 80 MG IVPUSH (05:22)
[2022-08-27] MEDS: ondansetron HCL 4 MG/2 ML VIAL IVPUSH (05:22)
[2022-08-27 05:25] LABS: Basophils Percent Auto 0.2 % (0-2); Eosinophils Percent Auto 0.1 % (0-4); Hematocrit 45.9 % (42.0-52.0); Hemoglobin 16.1 g/dl (14.0-18.0); Imm Gran Abs Auto 0.11 X10*3/uL (0.00-0.03); Imm Gran Pct Auto 0.6 % (0.0-0.4); Lymphocytes Absolute Auto 3.3 X10*3/uL (1.2-4.9); Lymphocytes Percent Auto 16.5 % (20-40); MANUAL DIFF FLAG NO; Mean Corpuscular HGB Conc 35.1 g/dl (31.0-36.0); Mean Corpuscular Hemoglobin 32.5 pg (27.0-33.0); Mean Corpuscular Volume 92.5 fL (80.0-98.0); Mean Platelet Volume 9.9 fL (9.4-12.4); Monocytes Absolute Auto 1.2 X10*3/uL (0.1-1.2); Monocytes Percent Auto 5.9 % (2-11); Neutrophils Absolute Auto 15.2 x10*3/uL (2.0-8.3); Neutrophils Percent Auto 76.7 % (45-73); Platelet Count 313 X10*3/uL (160-400); Red Blood Count 4.96 X10*6/uL (4.60-5.80); Red Cell Distribution Width 11.9 % (11.0-16.0); White Blood Count 19.8 X10*3/uL (4.8-10.8)
[2022-08-27 05:45] LABS: Ethanol < 10 mg/dL
[2022-08-27 05:48] LABS: Alanine Aminotransferase 18 U/L (0-40); Albumin Level 5.4 g/dL (3.5-5.0); Alkaline Phosphatase 73 U/L (39-117); Anion Gap 25 (12-20); Aspartate Amino Transferase 25 U/L (5-37); Bilirubin Direct 0.4 mg/dL (0.0-0.5); Bilirubin Total 1.4 mg/dL (0.0-1.0); Blood Urea Nitrogen 30 mg/dL (9-16); Calcium 10.7 mg/dL (8.4-10.2); Carbon Dioxide 20 mmol/L (22-29); Chloride 103 mmol/L (96-108); Creatinine Clr Calc Pharmacy 74.5; Estimated Glomerular Filt Rate > 60; Glucose Random 122 mg/dL (60-115); Lipase 15 U/L (8-78); Potassium 4.3 mmol/L (3.3-5.1); Sodium 144 mmol/L (135-145); Total Protein 8.9 g/dL (6.5-8.0)
--- NOTE | 2022-08-27 06:16 | PC.NURSE ---
Pt. vomiting reddish fluid. Pt. reports drinking vitamin water earlier. IV placed and fluids running. Medicated per DEC.
[2022-08-27 07:32] VITALS: BP 121/70; PULSE 92; RESP 12; TEMP 37.2
== END 2022-08-27 08:32 | disposition home or self-care (01) ==
PROVIDERS: Emergency Medicine; Emergency Provider Emergency Medicine Emergency Medical Services; PCP Internal Medicine
DX: K29.20 Alcoholic gastritis without bleeding (principal); E86.0 Dehydration; R07.89 Other chest pain; F17.200 Nicotine dependence, unspecified, uncomplicated; Z71.6 Tobacco abuse counseling; Z79.899 Other long term (current) drug therapy
CPT/HCPCS: 36415; 71045; 80048; 80076; 82077; 82271; 83690; 85025; 96361; 96374; 96375; 99284; J2405

== ENCOUNTER 2023-09-11 10:34 | Emergency (ER) | payer MEDICAID, SELFPAY ==
--- NOTE | ~2023-09-11 | XR_ITS ---
EXAMINATION: XR CHEST 2 VIEW CLINICAL INFORMATION: Chest pain COMPARISON: 08/27/2022 TECHNIQUE: PA and lateral views of the chest obtained. FINDINGS: The lungs are clear. There are no pleural effusions. The cardiomediastinal silhouette is normal. A rib fracture, bone lesion or pneumothorax is evident. XR/XR chest 2V IMPRESSION: No acute cardiopulmonary disease.
--- NOTE | 2023-09-11 10:42 | ECG_ITS ---
Test Reason : CHEST PAIN Blood Pressure : / mmHG Vent. Rate : 067 BPM Atrial Rate : 067 BPM P-R Int : 142 ms QRS Dur : 086 ms QT Int : 362 ms P-R-T Axes : 056 059 050 degrees QTc Int : 382 ms Normal sinus rhythm with sinus arrhythmia Normal ECG When compared with ECG of 08-OCT-2019 15:20, No significant change was found Referred By: Generic ED Physician Electronically Signed By:BESSY RIOS
--- NOTE | 2023-09-11 10:52 | MHC.EDTECH ---
Patient ekg taken and was read by Provider
[2023-09-11 11:16] VITALS: BP 119/66; PULSE 60; RESP 16; TEMP 36.7; O2SAT 98; BMI 24.3
--- NOTE | 2023-09-11 11:16 | ED_ITS ---
HPI - General Adult General Chief complaint: Chest Pain Stated complaint: chest pain Related Data Previous Rx's Medication Instructions Recorded famotidine 20 mg tablet (Pepcid) 20 mg PO DAILY PRN abdominal 04/12/21 discomfort #30 tabs ondansetron 4 mg disintegrating 4 mg PO Q8H PRN nausea and 04/12/21 tablet vomiting #20 tabs cephalexin 500 mg tablet 500 mg PO QID 7 days #28 tabs 10/07/21 doxycycline hyclate 100 mg capsule 100 mg PO BID 7 days #14 caps 10/07/21 omeprazole 40 mg capsule,delayed 40 mg PO DAILY #30 caps 08/27/22 release ondansetron HCl 4 mg tablet 4 mg PO Q6H PRN nausea and 08/27/22 vomiting #20 tabs Allergies Allergy/AdvReac Type Severity Reaction Status Date / Time No Known Allergies Allergy Verified 06/25/22 05:07 [No Known Allergies*] PMFSH Past Medical History Medical History Gastritis Healthy adult Surgical History History of appendectomy Social History Social History Alcohol intake: current Alcohol intake frequency: a few times a month Alcohol type: hard liquor Patient Tobacco Use Status: Current everyday Tobacco user Substance Use Type: Marijuana Advance Directives: No Physical Exam ED Vital Signs: BMI result Body Mass Index 24.3 Course Course Course Narrative: This is a rapid medical exam: Additional HPI, ROS, PE not included below will be deferred to primary provider. Patient is a 28-year-old male presenting to the ED with complaint of 7/10 chest pain. States pain is diffuse across entire chest. Denies recent cough. Denies any recent strenuous activities. States symptoms began around 2 months ago and have waxed and waned. Worsened with sleeping prone. Plan: EKG, CXR, labs Medical Decision Making Lab Data 09/11/23 11:38 12 11:38 Labs: Lab Results 09/11/23 Range/Units 11:38 WBC 5.9 (4.8-10.8) X10*3/uL RBC 4.82 (4.60-5.80) X10*6/uL Hgb 15.7 (14.0-18.0) g/dl Hct 45.7 (42.0-52.0) % MCV 94.8 (80.0-98.0) fL MCH 32.6 (27.0-33.0) pg MCHC 34.4 (31.0-36.0) g/dl RDW 11.9 (11.0-16.0) % Plt Count 214 D (160-400) X10*3/uL MPV 10.4 (9.4-12.4) fL Immature Gran % (Auto) 0.3 (0.0-0.4) % Neut % (Auto) 53.6 (45-73) % Lymph % (Auto) 37.8 (20-40) % [place] % (Auto) 6.8 (2-11) % Eos % (Auto) 1.0 (0-4) % Baso % (Auto) 0.5 (0-2) % Lymph # (Auto) 2.2 (1.2-4.9) X10*3/uL [place] # (Auto) 0.4 (0.1-1.2) X10*3/uL Eos # (Auto) 0.1 (0.0-0.4) X10*3/uL Baso # (Auto) 0.0 (0.0-0.2) X10*3/uL Abs Immat Gran (auto) 0.02 (0.00-0.03) X10*3/uL Absolute Neuts (auto) 3.2 (2.0-8.3) x10*3/uL Absolute Nucleated RBC 0.000 (0.0-0.012) X10*3/uL Nucleated RBC % (auto) 0.0 (0.0-0.2) /100WBC PT 11.7 (11.1-13.3) SEC INR 1.0 (0.9-1.1) Sodium 139 (135-145) mmol/L Potassium 4.2 (3.3-5.1) mmol/L Chloride 103 (96-108) mmol/L Carbon Dioxide 29 (22-29) mmol/L Anion Gap 11 L (12-20) BUN 16 (9-16) mg/dL Creatinine 0.96 (0.5-1.4) mg/dL Estim Creat Clear Calc 105.1 Estimated GFR > 60 Random Glucose 92 (60-115) mg/dL Calcium 9.6 D (8.4-10.2) mg/dL Troponin I High Sens < 2.7 (<3.5-35.0) ng/L Discharge Plan Discharge Clinical Impression: Chest pain Patient Disposition: Left W/O Completing Treatment Prescriptions: No Action famotidine [Pepcid] 20 mg tablet 20 mg PO DAILY PRN (Reason: abdominal discomfort) Qty: 30 0RF ondansetron 4 mg tablet,disintegrating 4 mg PO Q8H PRN (Reason: nausea and vomiting) Qty: 20 0RF doxycycline hyclate 100 mg capsule 100 mg PO BID 7 Days Qty: 14 0RF cephalexin 500 mg tablet 500 mg PO QID 7 Days Qty: 28 0RF omeprazole 40 mg capsule,delayed release(DR/EC) 40 mg PO DAILY Qty: 30 0RF ondansetron HCl 4 mg tablet 4 mg PO Q6H PRN (Reason: nausea and vomiting) Qty: 20 0RF Discharge Date/Time: 09/11/23 17:43
[2023-09-11 11:51] LABS: MANUAL DIFF FLAG NO
[2023-09-11 11:53] LABS: Basophils Percent Auto 0.5 % (0-2); Eosinophils Absolute Auto 0.1 X10*3/uL (0.0-0.4); Hematocrit 45.7 % (42.0-52.0); Hemoglobin 15.7 g/dl (14.0-18.0); Imm Gran Abs Auto 0.02 X10*3/uL (0.00-0.03); Imm Gran Pct Auto 0.3 % (0.0-0.4); Lymphocytes Absolute Auto 2.2 X10*3/uL (1.2-4.9); Lymphocytes Percent Auto 37.8 % (20-40); Mean Corpuscular HGB Conc 34.4 g/dl (31.0-36.0); Mean Corpuscular Hemoglobin 32.6 pg (27.0-33.0); Mean Corpuscular Volume 94.8 fL (80.0-98.0); Mean Platelet Volume 10.4 fL (9.4-12.4); Monocytes Absolute Auto 0.4 X10*3/uL (0.1-1.2); Monocytes Percent Auto 6.8 % (2-11); Neutrophils Absolute Auto 3.2 x10*3/uL (2.0-8.3); Neutrophils Percent Auto 53.6 % (45-73); Platelet Count 214 X10*3/uL (160-400); Red Blood Count 4.82 X10*6/uL (4.60-5.80); Red Cell Distribution Width 11.9 % (11.0-16.0); White Blood Count 5.9 X10*3/uL (4.8-10.8)
[2023-09-11 12:04] LABS: Prothrombin Time 11.7 SEC (11.1-13.3)
[2023-09-11 12:08] LABS: Anion Gap 11 (12-20); Blood Urea Nitrogen 16 mg/dL (9-16); Calcium 9.6 mg/dL (8.4-10.2); Carbon Dioxide 29 mmol/L (22-29); Chloride 103 mmol/L (96-108); Creatinine Clr Calc Pharmacy 105.1; Estimated Glomerular Filt Rate > 60; Glucose Random 92 mg/dL (60-115); Potassium 4.2 mmol/L (3.3-5.1); Sodium 139 mmol/L (135-145)
[2023-09-11 12:18] LABS: Troponin-I High Sensitivity < 2.7 ng/L (<3.5-35.0)
== END 2023-09-11 17:43 | disposition left against medical advice (07) ==
PROVIDERS: Registered Nurse Emergency; Emergency Provider Emergency Medicine
DX: R07.89 Other chest pain (principal); Z79.899 Other long term (current) drug therapy
CPT/HCPCS: 36415; 71046; 80048; 84484; 85025; 85610; 93005; 99283

== ENCOUNTER → 2023-09-11 10:42 | Outpatient (BNV) | payer MEDICAID, SELFPAY | PROVIDERS: Visit Provider Internal Medicine | DX: R07.9 Chest pain, unspecified (principal) | CPT/HCPCS: 93010 ==